=== PATIENT | female | born 1970 | race Caucasian/White ===

== ENCOUNTER 2022-02-02 10:14 | Observation (INO) ==
[2022-02-02 10:34] VITALS: BMI 29.9
[2022-02-02] MEDS ORDERED: NS 1,000 ML IV 1,000 ML IV ONE (11:01)
[2022-02-02] MEDS ORDERED: TORADOL 30 MG VIAL IVP ONE (11:01)
--- NOTE | 2022-02-02 11:01 | DR.URIAD ---
HPI Time Seen Time Seen by Provider: 02/02/22 10:52 PCP Primary Care Physician: LYNN NUNES Complaint Chief Complaint:: PT HAS BEEN VOMITTNG X1 YEAR AND DOESN'T KNOW WHY. SHE SAW PCP RECENTLY AND WAS TREATED WITH CIPRO, SYMPTOMS RELIEVED AND HAVE STARTED BACK LAST NIGHT. PT STILL HAS GALLBLADDER COVID-19 Coronavirus risk:travel/contact w/high risk person: No Has patient experienced Coronavirus symptoms: Yes Coronavirus symptoms experienced: Fever and Shortness of Breath Reviewed Nurses Notes Reviewed: Yes Source History Provided: Patient and Family Member Mode of Arrival Mode of Arrival: Wheelchair Timing Onset of Chief Complaint: 02/01/22 Context Recent Treated Infections: None History of Respiratory: None PMH PMH Past Medical History: Yes Past Medical History: Diabetes, Hypertension and Seizures Past Medical History Comment: CONSTIPATION (LINZESS) Past Surgical History: Yes Surgical History: Hysterectomy Past Surgical History Comment: GOITER/THYROIDECTOMY, ABDOMINAL SURGERY Family History History of Family Medical Conditions: Yes Family Medical History: Diabetes Mellitus, Cancer, [place], Coronary Artery Disease and Hypertension Family Medical History Comment: ANEURYSM Social History Does any household member use tobacco: No Alcohol Use: None Do you use any recreational Drugs:: No Lives With: Family Lives Where: Home Travel Risk Coronavirus risk:travel/contact w/high risk person: No Has patient experienced Coronavirus symptoms: Yes Coronavirus symptoms experienced: Fever and Shortness of Breath Infectious screening In the last 2 months have you had wt loss of >10#?: NO Have you had fever, night sweats or hemotysis?: No Have you traveled outside the country in the last 6 months?: No Isolation: Standard ROS Review of Systems Constitutional: See HPI, Chills, Diaphoresis, Fever, Weakness and Fatigue Eyes: No Symptoms Reported and See HPI ENTM: See HPI and Nose Congestion; negative Nose Discharge Respiratoy: See HPI, Moist Cough and Short of Breath Cardiovascular: See HPI and Palpitations Gastrointestinal/Abdominal: See HPI, Abdominal Pain, Nausea and Vomiting; negative Diarrhea Genitourinary: See HPI and Frequency; negative Dysuria Neurological: See HPI and Weakness; negative Headache or Dizziness Musculoskeletal: See HPI and Back Pain (RIGHT FLANK PAIN.) Integumentary: See HPI and Dryness; negative Rash or Juandice Hematologic/Lymphatic: No Symptoms Reported and See HPI; negative Easy Bleeding, Easy Bruising or Swollen Glands Endocrine: No Symptoms Reported and See HPI; negative Increased Thirst or Increased Urine Psychiatric: No Symptoms Reported and See HPI All Other Systems: Reviewed and Negative PE Vital Signs Vitals: Temperature 99.8 F Pulse Rate 141 Respiratory Rate 20 Blood Pressure 120/80 O2 Sat by Pulse Oximetry 96 General Limitations: No Limitations Head Head Exam: Normal Inspection Eyes Eye exam: Normal Appearance and PERRL ENT ENT Exam: Normal Exam, Normal Oropharynx, Normal External Ear Exam and TM's Normal Bilaterally External Ear Exam: Normal External Inspection; negative Mastoid Tenderness TM/Canal Exam: Bilateral: Normal Nose Exam: Normal Nose Exam and Sinus Tenderness Mouth Exam: Normal Inspection; negative Lip Swelling or Tongue Swelling Throat Exam: negative Tonsillar Erythema, Tonsillomegaly or Tonsillar Exudate Neck Neck Exam: Normal Inspection and Trachea Midline; negative Tenderness Chest Chest Inspection: Normal Inspection and Symmetric Chest Wall Rise; negative Tenderness Respiratory Respiratory Exam: Normal Lung Sounds Bilat; negative Accessory Muscle Use, Chest Wall Tenderness or Respiratory Distress Respiratory Exam: Lower: Clear to Auscultation Cardiovascular Cardiovascular Exam: Tachycardia and Normal Heart Sounds; negative Systolic Murmur or Diastolic Murmur Abdominal Exam Abdominal Exam: Normal Inspection, Normal Bowel Sounds and Soft; negative Tenderness Extremeties Extremities Exam: Normal Inspection and Normal Capillary Refill Back Back Exam: (R) CVA Tenderness; negative (L) CVA Tenderness Neurologic Neurological Exam: Alert and Oriented X3; negative Motor Sensory Deficit Psychiatric Psychiatric Exam: Normal Affect and Normal Mood Skin Skin Exam: Dry ROR Labs Reviewed Result Diagrams: 02/02/22 11:16 02/02/22 11:16 Laboratory: WBC 12.8 X10^3/uL (3.6-10.0) H 02/02/22 11:16 RBC 4.85 X10^6/uL (3.5-5.4) 02/02/22 11:16 Hgb 13.4 g/dL (12.0-16.0) 02/02/22 11:16 Hct 40.5 % (36.0-47.0) 02/02/22 11:16 MCV 83.6 fL (80.0-100.0) 02/02/22 11:16 MCH 27.7 pg (27.0-34.0) 02/02/22 11:16 MCHC 33.1 g/dL (33.0-35.0) 02/02/22 11:16 RDW 14.7 % (11.6-16.5) 02/02/22 11:16 Plt Count 171 X10^3/uL (150.0-450.0) 02/02/22 11:16 Plt Count Comment Adequate (ADEQUATE) 02/02/22 11:16 MPV 10.4 fL (7.4-11.0) 02/02/22 11:16 Neut % (Auto) 93.0 % (42.0-75.0) H 02/02/22 11:16 Lymph % (Auto) 3.8 % (21.0-51.0) L 02/02/22 11:16 [place] % (Auto) 1.6 % (0.0-13.0) 02/02/22 11:16 Eos % (Auto) 0.5 % (0.9-2.9) L 02/02/22 11:16 Baso % (Auto) 1.1 % (0.2-1.0) H 02/02/22 11:16 Neut # (Auto) 12.0 x10^3/uL (2.2-4.8) H 02/02/22 11:16 Lymph # (Auto) 0.5 X10^3/uL (1.3-2.9) L 02/02/22 11:16 [place] # (Auto) 0.2 x10^3/uL (0.3-0.8) L 02/02/22 11:16 Eos # (Auto) 0.1 x10^3/uL (0.0-0.2) 02/02/22 11:16 Baso # (Auto) 0.1 X10^3/uL (0.0-0.1) 02/02/22 11:16 Absolute Nucleated RBC 0.0 /100WBC 02/02/22 11:16 Total Counted 100 02/02/22 11:16 Neutrophils % (Manual) 81 % (39-76) H 02/02/22 11:16 Band Neutrophils % 12 % (0-10) H 02/02/22 11:16 Lymphocytes % (Manual) 3 % (13-43) L 02/02/22 11:16 Monocytes % (Manual) 1 % (4-9) L 02/02/22 11:16 Metamyelocytes % 3 02/02/22 11:16 Plt Morphology Comment Normal (NORMAL) 02/02/22 11:16 RBC Morphology Normal (NORMAL) 02/02/22 11:16 Sodium 138 mmol/L (136-145) 02/02/22 11:16 Corrected Sodium 141 mmol/L (136-145) 02/02/22 11:16 Potassium 4.2 mmol/L (3.5-5.1) 02/02/22 11:16 Chloride 101 mmol/L (98-107) 02/02/22 11:16 Carbon Dioxide 27.9 mmol/L (21-32) 02/02/22 11:16 BUN 16 mg/dL (7-18) 02/02/22 11:16 Creatinine 0.93 mg/dL (0.55-1.02) 02/02/22 11:16 Est GFR (MDRD) Af Amer > 60 (>60) 02/02/22 11:16 Est GFR (MDRD) Non-Af > 60 (>60) 02/02/22 11:16 Glucose 209 mg/dL (65-99) H 02/02/22 11:16 Calcium 8.7 mg/dL (8.5-10.1) 02/02/22 11:16 Corrected Calcium 9.3 mg/dL (8.5-10.1) 02/02/22 11:16 Total Bilirubin 0.80 mg/dL (0.2-1.0) 02/02/22 11:16 AST 25 Units/L (15-37) 02/02/22 11:16 ALT 20 Units/L (12-78) 02/02/22 11:16 Alkaline Phosphatase 108 Units/L (46-116) 02/02/22 11:16 Total Protein 7.9 g/dL (6.4-8.2) 02/02/22 11:16 Albumin 3.3 g/dL (3.4-5.0) L 02/02/22 11:16 Globulin 4.6 g/dL (2.5-4.5) H 02/02/22 11:16 Albumin/Globulin Ratio 0.7 Ratio (1.1-2.1) L 02/02/22 11:16 Amylase 35 Units/L (25-115) 02/02/22 11:16 Lipase 28 Units/L (73-393) L 02/02/22 11:16 Specimen Type Clean catch urine 02/02/22 12:10 Urine Color Yellow (YELLOW) 02/02/22 12:10 Urine Appearance Clear (CLEAR) 02/02/22 12:10 Urine pH 7.0 (5.0 - 8.0) 02/02/22 12:10 Ur Specific [place] 1.015 (1.000-1.030) 02/02/22 12:10 Urine Protein Negative (NEGATIVE) 02/02/22 12:10 Urine Glucose (UA) 4+ (NEGATIVE) 02/02/22 12:10 Urine Ketones Negative (NEGATIVE) 02/02/22 12:10 Urine Blood Negative (NEGATIVE) 02/02/22 12:10 Urine Nitrite Negative (NEGATIVE) 02/02/22 12:10 Urine Bilirubin Negative (NEGATIVE) 02/02/22 12:10 Urine Urobilinogen Normal (NORMAL) 02/02/22 12:10 Ur Leukocyte Esterase 2+ (NEGATIVE) 02/02/22 12:10 Urine RBC None seen /HPF (0-3) 02/02/22 12:10 Urine WBC 0-2 /HPF (0-5) 02/02/22 12:10 Ur Squamous Epith Cells Few /HPF (NEGATIVE) 02/02/22 12:10 Urine Bacteria Negative /HPF (NEGATIVE) 02/02/22 12:10 Ur Culture Indicated? No/not indicated 02/02/22 12:10 SARS-CoV-2 (PCR) Negative (NEGATIVE) 02/02/22 10:49 Influenza Type A (PCR) Negative (NEGATIVE) 02/02/22 10:49 Influenza Type B (PCR) Negative (NEGATIVE) 02/02/22 10:49 RSV (PCR) Negative (NEGATIVE) 02/02/22 10:49 Opioid Opioid Risk Tool Age (Tenzin box if 16-45): No History of Preadolescent Sexual Abuse: No Total: 0 Total Score Risk Category: Low Risk Copyright: Micheal WOODS predicting aberrant behaviors Discharge Plan Discharge Plan Patient Disposition: 01 HOME, SELF-CARE Condition: Stable Health Concerns: Post Hospitalization: new medications and changes needed to prevent readmission or further decline. Pt educated and given instructions on all concerns. Plan of Treatment: Continue with present treatment and follow up plan. Pt is to keep follow up appointment as instructed and take medications as ordered. Orders to Discharge Patient Discharge Orders: Transfer (Routine); Ordered 02/02/22 Ordered By: EV TOVAR Follow ups/Referrals Follow ups/Referrals: LYNN NUNES [Primary Care Provider] - 3 days Instructions Stand Alone Forms: Precautions for COVID19, [facility], Patient Portal, Social Distancing
[2022-02-02] MEDS ORDERED: TORADOL 30 MG VIAL ONE (11:12)
[2022-02-02] MEDS ORDERED: NS 1,000 ML IV 1,000 ML ONE ×2 (11:12→15:27)
[2022-02-02] MEDS ORDERED: ZOFRAN INJ 4 MG VIAL IVP ONE (11:31)
[2022-02-02 11:32] LABS: BASOPHILS # (AUTO) 0.1 X10^3/uL (0.0-0.1); BASOPHILS % (AUTO) 1.1 % (0.2-1.0); EOSINOPHILS # (AUTO) 0.1 x10^3/uL (0.0-0.2); EOSINOPHILS % (AUTO) 0.5 % (0.9-2.9); HEMATOCRIT 40.5 % (36.0-47.0); HEMOGLOBIN 13.4 g/dL (12.0-16.0); LYMPHOCYTES # (AUTO) 0.5 X10^3/uL (1.3-2.9); LYMPHOCYTES % (AUTO) 3.8 % (21.0-51.0); MEAN CORPUSCULAR HEMOGLOBIN 27.7 pg (27.0-34.0); MEAN CORPUSCULAR HGB CONC 33.1 g/dL (33.0-35.0); MEAN CORPUSCULAR VOLUME 83.6 fL (80.0-100.0); MEAN PLATELET VOLUME 10.4 fL (7.4-11.0); MONOCYTES # (AUTO) 0.2 x10^3/uL (0.3-0.8); MONOCYTES % (AUTO) 1.6 % (0.0-13.0); RED BLOOD COUNT 4.85 X10^6/uL (3.5-5.4); RED CELL DISTRIBUTION WIDTH 14.7 % (11.6-16.5); WHITE BLOOD COUNT 12.8 X10^3/uL (3.6-10.0)
[2022-02-02] MEDS ORDERED: ZOFRAN INJ 4 MG VIAL ONE (11:32)
[2022-02-02 11:45] LABS: ALANINE AMINOTRANSFERASE 20 Units/L (12-78); ALBUMIN 3.3 g/dL (3.4-5.0); ALKALINE PHOSPHATASE 108 Units/L (46-116); AMYLASE 35 Units/L (25-115); ASPARTATE AMINO TRANSFERASE 25 Units/L (15-37); BLOOD UREA NITROGEN 16 mg/dL (7-18); CALCIUM 8.7 mg/dL (8.5-10.1); CARBON DIOXIDE 27.9 mmol/L (21-32); CHLORIDE 101 mmol/L (98-107); COR CA(FOR HYPOALB) 9.3 mg/dL (8.5-10.1); COR NA(FOR HYPERGLY) 141 mmol/L (136-145); CREATININE 0.93 mg/dL (0.55-1.02); LIPASE 28 Units/L (73-393); SODIUM 138 mmol/L (136-145); TOTAL PROTEIN 7.9 g/dL (6.4-8.2); eGFR NON BLACK RACES > 60 (>60)
[2022-02-02 11:55] LABS: BAND NEUTROPHILS % 12 % (0-10); METAMYELOCYTES % 3; PLATELET MORPHOLOGY COMMENT NORMAL (NORMAL)
[2022-02-02 12:21] LABS: BILIRUBIN,URINE NEGATIVE (NEGATIVE); BLOOD/HEMOGLOBIN,URINE NEGATIVE (NEGATIVE); GLUCOSE, URINE 4+ (NEGATIVE); KETONES,URINE NEGATIVE (NEGATIVE); LEUKOCYTE ESTERASE ,URINE 2+ (NEGATIVE); NITRITES,URINE NEGATIVE (NEGATIVE); PROTEIN,URINE NEGATIVE (NEGATIVE); UROBILINOGEN,URINE NORMAL (NORMAL)
[2022-02-02 12:24] LABS: APPEARANCE,URINE CLEAR (CLEAR); COLOR,URINE YELLOW (YELLOW)
[2022-02-02 12:25] LABS: BACTERIA,URINE NEGATIVE /HPF (NEGATIVE); RBC,URINE NONE SEEN /HPF (0-3); SQUAMOUS EPITHELIAL CELL,UR FEW /HPF (NEGATIVE)
--- NOTE | 2022-02-02 13:53 | CT ---
ABDOMEN/PELVIS W/O CONHistory: FEVER, CHILLS, ABD PAINTechnique: CT images of the abdomen and pelvis were obtained without IV or oral contrast. Reformatted images in the coronal and sagittal planes also generated for review. Automatic exposure was utilized.Comparison: None availableFindings: Imaged lung bases are clear of acute infiltrates. There is no acute osseous abnormality.Please note that evaluation for soft tissue pathology is limited without IV contrast. Evaluation of the GI tract is also limited without oral contrast.Accounting for this, the unenhanced liver, spleen, pancreas and adrenals are unremarkable. Gallbladder is mildly distended but thin walled without significant gallbladder wall thickening or pericholecystic inflammatory stranding. Small nonobstructing stones within the lower pole of the left kidney are noted. No additional radiopaque urinary tract stones are identified and there is no left or right obstructive uropathy.There is no bowel obstruction or gross inflammation. The appendix is not definitively identified, although no secondary findings of acute appendicitis are seen. The abdominal aorta is normal in caliber. The urinary bladder is grossly unremarkable. The uterus is absent. There is no free air, free fluid or bulky lymphadenopathy.Impression:1. Mild gallbladder distention without significant gallbladder wall thickening or pericholecystic inflammatory change to suggest acute cholecystitis. If patient presents with symptoms concerning for acute cholecystitis, consider gallbladder ultrasound for further evaluation.2. Otherwise, no convincing acute inflammatory process identified within the abdomen or pelvis, within the limitations of an exam performed without intravenous or oral contrast.3. Nonobstructing left nephrolithiasisElectronically signed by: JOHN VEGAS (Feb 02, 2022 13:51:14)
[2022-02-02] MEDS ORDERED: ZOSYN VIAL 3.375 GRAMS 3.375 G in NS 100 ML IV 100 ML IV ONE (15:07)
[2022-02-02] MEDS ORDERED: ZOSYN VIAL 3.375 GRAMS IV ONE (15:27)
[2022-02-02] MEDS ORDERED: NS 100 ML IV 100 ML ONE (15:27)
[2022-02-02] MEDS: NS 1,000 ML IV 1,000 ML IV SCH (15:49)
[2022-02-02] MEDS ORDERED: NS + KCL 20 MEQ/L 1,000 ML IV SCH (16:00)
[2022-02-02] MEDS: DILAUDID INJ IVP PRN (17:20)
--- NOTE | 2022-02-02 17:27 | DR.H&P ---
H&P History & Physical for Day of: H&P Date: 02/02/22 Chief Complaint Chief Complaint: RUQ pain Allergies Allergies Allergy/AdvReac Type Severity Reaction Status Date / Time No Known Drug Allergies Allergy Verified 02/02/22 15:23 History of Present Illness History of Present Illness: This is a pleasant 51-year-old white female who presented to the [facility] emergency department with worsening chronic right upper pain. The pain started approximately a year ago she has not had any test to see if it was her gallbladder causing her these symptoms. She did see her primary care physician recently was diagnosed with a UTI when she treated with antibiotics. Patient has a history of seizures, diabetes mellitus and hypertension. Past Medical History Past Medical History: Diabetes, Hypertension and Seizures Past Surgical History Surgical History: Hysterectomy and Thyroidectomy Family History Family Medical History: Diabetes Mellitus, Cancer, [place], Coronary Artery Disease and Hypertension Social History Does any household member use tobacco: No Alcohol Use: None Medications Home Medications: No Known Drug Allergies Allergy (Verified 02/02/22 15:23) Labs Result Diagrams: 02/03/22 05:26 02/03/22 05:26 Labs: Laboratory WBC 12.8 X10^3/uL (3.6-10.0) H 02/02/22 11:16 RBC 4.85 X10^6/uL (3.5-5.4) 02/02/22 11:16 Hgb 13.4 g/dL (12.0-16.0) 02/02/22 11:16 Hct 40.5 % (36.0-47.0) 02/02/22 11:16 MCV 83.6 fL (80.0-100.0) 02/02/22 11:16 MCH 27.7 pg (27.0-34.0) 02/02/22 11:16 MCHC 33.1 g/dL (33.0-35.0) 02/02/22 11:16 RDW 14.7 % (11.6-16.5) 02/02/22 11:16 Plt Count 171 X10^3/uL (150.0-450.0) 02/02/22 11:16 Plt Count Comment Adequate (ADEQUATE) 02/02/22 11:16 MPV 10.4 fL (7.4-11.0) 02/02/22 11:16 Neut % (Auto) 93.0 % (42.0-75.0) H 02/02/22 11:16 Lymph % (Auto) 3.8 % (21.0-51.0) L 02/02/22 11:16 [place] % (Auto) 1.6 % (0.0-13.0) 02/02/22 11:16 Eos % (Auto) 0.5 % (0.9-2.9) L 02/02/22 11:16 Baso % (Auto) 1.1 % (0.2-1.0) H 02/02/22 11:16 Neut # (Auto) 12.0 x10^3/uL (2.2-4.8) H 02/02/22 11:16 Lymph # (Auto) 0.5 X10^3/uL (1.3-2.9) L 02/02/22 11:16 [place] # (Auto) 0.2 x10^3/uL (0.3-0.8) L 02/02/22 11:16 Eos # (Auto) 0.1 x10^3/uL (0.0-0.2) 02/02/22 11:16 Baso # (Auto) 0.1 X10^3/uL (0.0-0.1) 02/02/22 11:16 Absolute Nucleated RBC 0.0 /100WBC 02/02/22 11:16 Total Counted 100 02/02/22 11:16 Neutrophils % (Manual) 81 % (39-76) H 02/02/22 11:16 Band Neutrophils % 12 % (0-10) H 02/02/22 11:16 Lymphocytes % (Manual) 3 % (13-43) L 02/02/22 11:16 Monocytes % (Manual) 1 % (4-9) L 02/02/22 11:16 Metamyelocytes % 3 02/02/22 11:16 Plt Morphology Comment Normal (NORMAL) 02/02/22 11:16 RBC Morphology Normal (NORMAL) 02/02/22 11:16 Sodium 138 mmol/L (136-145) 02/02/22 11:16 Corrected Sodium 141 mmol/L (136-145) 02/02/22 11:16 Potassium 4.2 mmol/L (3.5-5.1) 02/02/22 11:16 Chloride 101 mmol/L (98-107) 02/02/22 11:16 Carbon Dioxide 27.9 mmol/L (21-32) 02/02/22 11:16 BUN 16 mg/dL (7-18) 02/02/22 11:16 Creatinine 0.93 mg/dL (0.55-1.02) 02/02/22 11:16 Est GFR (MDRD) Af Amer > 60 (>60) 02/02/22 11:16 Est GFR (MDRD) Non-Af > 60 (>60) 02/02/22 11:16 Glucose 209 mg/dL (65-99) H 02/02/22 11:16 Calcium 8.7 mg/dL (8.5-10.1) 02/02/22 11:16 Corrected Calcium 9.3 mg/dL (8.5-10.1) 02/02/22 11:16 Total Bilirubin 0.80 mg/dL (0.2-1.0) 02/02/22 11:16 AST 25 Units/L (15-37) 02/02/22 11:16 ALT 20 Units/L (12-78) 02/02/22 11:16 Alkaline Phosphatase 108 Units/L (46-116) 02/02/22 11:16 Total Protein 7.9 g/dL (6.4-8.2) 02/02/22 11:16 Albumin 3.3 g/dL (3.4-5.0) L 02/02/22 11:16 Globulin 4.6 g/dL (2.5-4.5) H 02/02/22 11:16 Albumin/Globulin Ratio 0.7 Ratio (1.1-2.1) L 02/02/22 11:16 Amylase 35 Units/L (25-115) 02/02/22 11:16 Lipase 28 Units/L (73-393) L 02/02/22 11:16 Specimen Type Clean catch urine 02/02/22 12:10 Urine Color Yellow (YELLOW) 02/02/22 12:10 Urine Appearance Clear (CLEAR) 02/02/22 12:10 Urine pH 7.0 (5.0 - 8.0) 02/02/22 12:10 Ur Specific [place] 1.015 (1.000-1.030) 02/02/22 12:10 Urine Protein Negative (NEGATIVE) 02/02/22 12:10 Urine Glucose (UA) 4+ (NEGATIVE) 02/02/22 12:10 Urine Ketones Negative (NEGATIVE) 02/02/22 12:10 Urine Blood Negative (NEGATIVE) 02/02/22 12:10 Urine Nitrite Negative (NEGATIVE) 02/02/22 12:10 Urine Bilirubin Negative (NEGATIVE) 02/02/22 12:10 Urine Urobilinogen Normal (NORMAL) 02/02/22 12:10 Ur Leukocyte Esterase 2+ (NEGATIVE) 02/02/22 12:10 Urine RBC None seen /HPF (0-3) 02/02/22 12:10 Urine WBC 0-2 /HPF (0-5) 02/02/22 12:10 Ur Squamous Epith Cells Few /HPF (NEGATIVE) 02/02/22 12:10 Urine Bacteria Negative /HPF (NEGATIVE) 02/02/22 12:10 Ur Culture Indicated? No/not indicated 02/02/22 12:10 SARS-CoV-2 (PCR) Negative (NEGATIVE) 02/02/22 10:49 Influenza Type A (PCR) Negative (NEGATIVE) 02/02/22 10:49 Influenza Type B (PCR) Negative (NEGATIVE) 02/02/22 10:49 RSV (PCR) Negative (NEGATIVE) 02/02/22 10:49 Review of Systems Constitutional: Weakness Eyes: No Symptoms Reported ENT: No Symptoms Reported Respiratory: No Symptoms Reported Cardiovascular: No Symptoms Reported Gastrointestinal: Abdominal Pain Genitourinary: No Symptoms Reported Musculoskeletal: No Symptoms Reported Skin: No Symptoms Reported Neurological: No Symptoms Reported Physical Exam Vital Signs: Temperature 99.8 F Pulse Rate 141 Respiratory Rate 22 Blood Pressure 120/80 O2 Sat by Pulse Oximetry 96 Oriented: Normal Eyes: Normal Ear: Normal Nose: Normal Throat: Normal Respiratory: Clear Throughout Cardiovascular: Normal : Normal Auscultation: Bowel Sounds: Normal Palpation: Normal Tenderness: RUQ Skin: Normal Musculoskeletal: Normal Psychiatric: Normal Mood Description: Calm Affect: Normal Speech Pattern: Clear Assessment/Plan (1) RUQ pain: Status: Acute Plan: General surgery evaluation for cholecystectomy. Follow-up with gallbladder ultrasound. (2) Hx of seizure disorder: Status: Acute (3) Leukocytosis: Status: Acute Plan: Continue IV Zosyn.
[2022-02-02] MEDS ORDERED: ZOFRAN INJ 4 MG VIAL IVP PRN (17:55)
[2022-02-02] MEDS: ZOSYN VIAL 3.375 GRAMS 3.375 G in NS 100 ML IV 100 ML IV SCH (18:04)
[2022-02-03] MEDS: NS 1,000 ML IV 1,000 ML IV SCH ×3 (00:23→18:57)
[2022-02-03] MEDS: ZOSYN VIAL 3.375 GRAMS 3.375 G in NS 100 ML IV 100 ML IV SCH ×3 (05:39→21:00)
--- NOTE | 2022-02-03 06:01 | RAD ---
HISTORYpre op. acute cholecystitis Relevant Clinical InformationSTUDYCHEST, 1 VIEWCOMPARISONNoneFINDINGSThe trachea is midline. The cardiac silhouette is unremarkable. Left upper lobe infiltrate.. The bony thorax is unremarkable.IMPRESSIONLeft upper lobe pneumonia..Electronically signed by: Willam Benoit (Feb 03, 2022 05:59:34)
[2022-02-03 06:38] LABS: BASOPHILS # (AUTO) 0.1 X10^3/uL (0.0-0.1); BASOPHILS % (AUTO) 0.3 % (0.2-1.0); EOSINOPHILS % (AUTO) 0.1 % (0.9-2.9); HEMATOCRIT 33.5 % (36.0-47.0); LYMPHOCYTES # (AUTO) 2.3 X10^3/uL (1.3-2.9); LYMPHOCYTES % (AUTO) 8.5 % (21.0-51.0); MEAN CORPUSCULAR HEMOGLOBIN 27.6 pg (27.0-34.0); MEAN CORPUSCULAR HGB CONC 32.8 g/dL (33.0-35.0); MEAN CORPUSCULAR VOLUME 84.1 fL (80.0-100.0); MEAN PLATELET VOLUME 10.7 fL (7.4-11.0); MONOCYTES # (AUTO) 1.9 x10^3/uL (0.3-0.8); NEUTROPHILS # (AUTO) 22.4 x10^3/uL (2.2-4.8); NEUTROPHILS % (AUTO) 84.1 % (42.0-75.0); RED BLOOD COUNT 3.99 X10^6/uL (3.5-5.4); RED CELL DISTRIBUTION WIDTH 14.8 % (11.6-16.5); WHITE BLOOD COUNT 26.7 X10^3/uL (3.6-10.0)
[2022-02-03 06:42] LABS: ALANINE AMINOTRANSFERASE 13 Units/L (12-78); ALBUMIN 2.5 g/dL (3.4-5.0); ALKALINE PHOSPHATASE 70 Units/L (46-116); AMYLASE 24 Units/L (25-115); ASPARTATE AMINO TRANSFERASE 17 Units/L (15-37); BLOOD UREA NITROGEN 19 mg/dL (7-18); CALCIUM 7.8 mg/dL (8.5-10.1); CARBON DIOXIDE 26.5 mmol/L (21-32); CHLORIDE 106 mmol/L (98-107); CREATININE 0.82 mg/dL (0.55-1.02); LIPASE 20 Units/L (73-393); SODIUM 140 mmol/L (136-145); TOTAL PROTEIN 6.5 g/dL (6.4-8.2); eGFR NON BLACK RACES > 60 (>60)
[2022-02-03 07:16] LABS: BAND NEUTROPHILS % 17 % (0-10); METAMYELOCYTES % 1; PLATELET MORPHOLOGY COMMENT NORMAL (NORMAL)
[2022-02-03] MEDS ORDERED: DUONEB 0.5 MG/3 MG (3 mL) NEB ONE ×2 (08:37→08:40)
[2022-02-03] MEDS ORDERED: XYLOCAINE 2 % (PLAIN) ONE (08:55)
[2022-02-03] MEDS ORDERED: ZEMURON 100 MG VIAL ONE (08:55)
[2022-02-03] MEDS ORDERED: PEPCID 20 MG VIAL ONE (08:55)
[2022-02-03] MEDS ORDERED: VERSED ONE (08:55)
[2022-02-03] MEDS ORDERED: OFIRMEV IV 1000 MG VIAL 1,000 MG/100 ML VIAL IV ONE (08:55)
[2022-02-03] MEDS ORDERED: AMIDATE INJ 40 MG VIAL ONE (08:55)
[2022-02-03] MEDS ORDERED: BRIDION ONE (08:55)
[2022-02-03] MEDS ORDERED: ZOFRAN INJ 4 MG VIAL ONE (08:55)
[2022-02-03] MEDS ORDERED: FENTANYL VIAL INJ 100 mcg ONE (08:56)
[2022-02-03] MEDS ORDERED: KETAMINE HCL ONE (09:07)
[2022-02-03] MEDS ORDERED: EPHEDRINE SULFATE INJ ONE (09:28)
[2022-02-03] MEDS ORDERED: DECADRON INJ ONE (09:39)
[2022-02-03] MEDS ORDERED: BACTROBAN TOPICAL OINT ONE (10:08)
[2022-02-03] MEDS ORDERED: DILAUDID INJ ONE (10:10)
[2022-02-03] MEDS ORDERED: PHENERGAN INJ 25 MG IM PRN (10:31)
[2022-02-03] MEDS ORDERED: DILAUDID INJ IVP PRN (10:31)
[2022-02-03] MEDS ORDERED: BARHEMSYS INJ IVP PRN (10:31)
[2022-02-03] MEDS ORDERED: BENADRYL INJ 50 MG VIAL IVP PRN (10:31)
[2022-02-03] MEDS: DILAUDID INJ IVP PRN ×3 (13:38→23:54)
--- NOTE | 2022-02-03 15:16 | PCM.PROG ---
Progress Note Progress Note for Day of Date of Exam: 02/03/22 Subjective Subjective: Patient had no acute problems overnight. She is still hurting in the right upper quadrant however that her pain is better controlled. The patient's white blood cell count has gone up since admission to 26,700 this morning. Also chest x-ray showed a right upper lobe pneumonia today. Patient is already covered with IV Zosyn we will continue that. Past Medical Family Social History Allergies: Allergies No Known Drug Allergies Allergy (Verified 02/02/22 15:23) Review of Systems ROS: No change since H&P Vital Signs and I&O's Vital Signs: Temperature 98.9 F Pulse Rate [Left Radial] 96 Pulse Rate 92 Respiratory Rate 22 Blood Pressure [Left Arm] 117/63 Blood Pressure 113/58 O2 Sat by Pulse Oximetry 97 Intake and Output: Intake & Output 02/01/22 02/02/22 02/03/22 02/04/22 11:59 11:59 11:59 11:59 Intake Total 3761 / 3761 1400 / 1400 Balance 3761 / 3761 1400 / 1400 Physical Exam Oriented: Normal Eyes: Normal Ear: Normal Nose: Normal Throat: Normal Respiratory: Normal Cardiovascular: Normal : Normal Auscultation: Bowel Sounds: Normal Tenderness: RUQ Skin: Normal Musculoskeletal: Normal Psychiatric: Normal Mood Description: Calm Affect: Normal Speech Pattern: Clear Laboratory and Diagnostics Result Diagrams: 02/03/22 05:26 02/03/22 05:26 Labs: Laboratory WBC 26.7 X10^3/uL (3.6-10.0) H D 02/03/22 05:26 RBC 3.99 X10^6/uL (3.5-5.4) 02/03/22 05:26 Hgb 11.0 g/dL (12.0-16.0) L D 02/03/22 05:26 Hct 33.5 % (36.0-47.0) L 02/03/22 05:26 MCV 84.1 fL (80.0-100.0) 02/03/22 05:26 MCH 27.6 pg (27.0-34.0) 02/03/22 05:26 MCHC 32.8 g/dL (33.0-35.0) L 02/03/22 05:26 RDW 14.8 % (11.6-16.5) 02/03/22 05:26 Plt Count 151 X10^3/uL (150.0-450.0) 02/03/22 05:26 Plt Count Comment Adequate (ADEQUATE) 02/03/22 05:26 MPV 10.7 fL (7.4-11.0) 02/03/22 05:26 Neut % (Auto) 84.1 % (42.0-75.0) H 02/03/22 05:26 Lymph % (Auto) 8.5 % (21.0-51.0) L 02/03/22 05:26 [place] % (Auto) 7.0 % (0.0-13.0) 02/03/22 05:26 Eos % (Auto) 0.1 % (0.9-2.9) L 02/03/22 05:26 Baso % (Auto) 0.3 % (0.2-1.0) 02/03/22 05:26 Neut # (Auto) 22.4 x10^3/uL (2.2-4.8) H 02/03/22 05:26 Lymph # (Auto) 2.3 X10^3/uL (1.3-2.9) 02/03/22 05:26 [place] # (Auto) 1.9 x10^3/uL (0.3-0.8) H 02/03/22 05:26 Eos # (Auto) 0.0 x10^3/uL (0.0-0.2) 02/03/22 05:26 Baso # (Auto) 0.1 X10^3/uL (0.0-0.1) 02/03/22 05:26 Absolute Nucleated RBC 0.0 /100WBC 02/03/22 05:26 Total Counted 100 02/03/22 05:26 Neutrophils % (Manual) 58 % (39-76) 02/03/22 05:26 Band Neutrophils % 17 % (0-10) H 02/03/22 05:26 Lymphocytes % (Manual) 15 % (13-43) 02/03/22 05:26 Monocytes % (Manual) 9 % (4-9) 02/03/22 05:26 Metamyelocytes % 1 02/03/22 05:26 Plt Morphology Comment Normal (NORMAL) 02/03/22 05:26 RBC Morphology Normal (NORMAL) 02/03/22 05:26 Sodium 140 mmol/L (136-145) 02/03/22 05:26 Corrected Sodium TNP 02/03/22 05:26 Potassium 3.7 mmol/L (3.5-5.1) 02/03/22 05:26 Chloride 106 mmol/L (98-107) 02/03/22 05:26 Carbon Dioxide 26.5 mmol/L (21-32) 02/03/22 05:26 BUN 19 mg/dL (7-18) H 02/03/22 05:26 Creatinine 0.82 mg/dL (0.55-1.02) 02/03/22 05:26 Est GFR (MDRD) Af Amer > 60 (>60) 02/03/22 05:26 Est GFR (MDRD) Non-Af > 60 (>60) 02/03/22 05:26 Glucose 108 mg/dL (65-99) H 02/03/22 05:26 POC Glucose (mg/dL) 177 mg/dL (65-99) H 02/03/22 12:05 Calcium 7.8 mg/dL (8.5-10.1) L 02/03/22 05:26 Corrected Calcium 9.0 mg/dL (8.5-10.1) 02/03/22 05:26 Total Bilirubin 0.70 mg/dL (0.2-1.0) 02/03/22 05:26 AST 17 Units/L (15-37) 02/03/22 05:26 ALT 13 Units/L (12-78) 02/03/22 05:26 Alkaline Phosphatase 70 Units/L (46-116) 02/03/22 05:26 Total Protein 6.5 g/dL (6.4-8.2) 02/03/22 05:26 Albumin 2.5 g/dL (3.4-5.0) L 02/03/22 05:26 Globulin 4.0 g/dL (2.5-4.5) 02/03/22 05:26 Albumin/Globulin Ratio 0.6 Ratio (1.1-2.1) L 02/03/22 05:26 Amylase 24 Units/L (25-115) L 02/03/22 05:26 Lipase 20 Units/L (73-393) L 02/03/22 05:26 Specimen Type Clean catch urine 02/02/22 12:10 Urine Color Yellow (YELLOW) 02/02/22 12:10 Urine Appearance Clear (CLEAR) 02/02/22 12:10 Urine pH 7.0 (5.0 - 8.0) 02/02/22 12:10 Ur Specific [place] 1.015 (1.000-1.030) 02/02/22 12:10 Urine Protein Negative (NEGATIVE) 02/02/22 12:10 Urine Glucose (UA) 4+ (NEGATIVE) 02/02/22 12:10 Urine Ketones Negative (NEGATIVE) 02/02/22 12:10 Urine Blood Negative (NEGATIVE) 02/02/22 12:10 Urine Nitrite Negative (NEGATIVE) 02/02/22 12:10 Urine Bilirubin Negative (NEGATIVE) 02/02/22 12:10 Urine Urobilinogen Normal (NORMAL) 02/02/22 12:10 Ur Leukocyte Esterase 2+ (NEGATIVE) 02/02/22 12:10 Urine RBC None seen /HPF (0-3) 02/02/22 12:10 Urine WBC 0-2 /HPF (0-5) 02/02/22 12:10 Ur Squamous Epith Cells Few /HPF (NEGATIVE) 02/02/22 12:10 Urine Bacteria Negative /HPF (NEGATIVE) 02/02/22 12:10 Ur Culture Indicated? No/not indicated 02/02/22 12:10 SARS-CoV-2 (PCR) Negative (NEGATIVE) 02/02/22 10:49 Influenza Type A (PCR) Negative (NEGATIVE) 02/02/22 10:49 Influenza Type B (PCR) Negative (NEGATIVE) 02/02/22 10:49 RSV (PCR) Negative (NEGATIVE) 02/02/22 10:49 Tissue Pathology To follow 02/03/22 10:00 Plan (1) RUQ pain: Status: Acute Plan: General surgery evaluation for cholecystectomy. Follow-up with gallbladder ultrasound. (2) Hx of seizure disorder: Status: Acute (3) Leukocytosis: Status: Acute Plan: Continue IV Zosyn. (4) Right upper lobe pneumonia: Status: Acute Plan: Continue IV Zosyn and patient at this time. Recheck CBC and chest x-ray tomorrow morning. Also check sputum cultures as well.
[2022-02-03] MEDS ORDERED: NovoLIN R (or HumuLIN R) SC PRN (17:09)
[2022-02-04] MEDS: NS 1,000 ML IV 1,000 ML IV SCH ×4 (00:26→15:33)
[2022-02-04] MEDS: ZOSYN VIAL 3.375 GRAMS 3.375 G in NS 100 ML IV 100 ML IV SCH ×2 (05:12→13:50)
[2022-02-04 06:11] LABS: BASOPHILS % (AUTO) 0.3 % (0.2-1.0); HEMATOCRIT 31.6 % (36.0-47.0); HEMOGLOBIN 10.5 g/dL (12.0-16.0); LYMPHOCYTES # (AUTO) 1.2 X10^3/uL (1.3-2.9); LYMPHOCYTES % (AUTO) 6.6 % (21.0-51.0); MEAN CORPUSCULAR HEMOGLOBIN 27.7 pg (27.0-34.0); MEAN CORPUSCULAR HGB CONC 33.3 g/dL (33.0-35.0); MEAN CORPUSCULAR VOLUME 83.1 fL (80.0-100.0); MEAN PLATELET VOLUME 10.5 fL (7.4-11.0); MONOCYTES # (AUTO) 0.7 x10^3/uL (0.3-0.8); MONOCYTES % (AUTO) 3.7 % (0.0-13.0); NEUTROPHILS # (AUTO) 16.3 x10^3/uL (2.2-4.8); NEUTROPHILS % (AUTO) 89.4 % (42.0-75.0); RED CELL DISTRIBUTION WIDTH 14.8 % (11.6-16.5); WHITE BLOOD COUNT 18.2 X10^3/uL (3.6-10.0)
[2022-02-04 06:24] LABS: ALANINE AMINOTRANSFERASE 21 Units/L (12-78); ALBUMIN 2.4 g/dL (3.4-5.0); ALKALINE PHOSPHATASE 66 Units/L (46-116); ASPARTATE AMINO TRANSFERASE 34 Units/L (15-37); BLOOD UREA NITROGEN 15 mg/dL (7-18); CHLORIDE 106 mmol/L (98-107); COR CA(FOR HYPOALB) 9.3 mg/dL (8.5-10.1); COR NA(FOR HYPERGLY) 139 mmol/L (136-145); CREATININE 0.68 mg/dL (0.55-1.02); SODIUM 138 mmol/L (136-145); TOTAL PROTEIN 6.5 g/dL (6.4-8.2); eGFR NON BLACK RACES > 60 (>60)
[2022-02-04] MEDS ORDERED: SALINE 0.9% 3 ML NEB TX ONE (08:48)
--- NOTE | 2022-02-04 08:51 | DR.PROGNOT ---
Hospital Progress Notes - Progress Note for Day of: Progress Note Date: 02/04/22 - Chief Complaint Chief Complaint: post op lap mode for calculus cholecystitis . WBC still high 18.. LFT normal .. afebrile .. - Past Medical Family Social History Past Med/Fam/Surg Hx: No changes since H&P Allergies: Allergies No Known Drug Allergies Allergy (Verified 02/02/22 15:23) - Review Of Systems ROS: No change since H&P - Vital Signs Vital Signs: Temperature 98.4 F Pulse Rate [Left Radial] 80 Pulse Rate 92 Respiratory Rate 18 Blood Pressure [Left Arm] 145/76 Blood Pressure 113/58 O2 Sat by Pulse Oximetry 97 - Physical Exam Oriented: Normal Eyes: Normal Ear: Normal Nose: Normal Throat: Normal Respiratory: Normal Cardiovascular: Normal : Normal GI:Auscultation: Normal GI:Palpation: Normal GI: Tenderness: Diffuse (soft, flat abdomen with mild diffuse tenerness .. BS+) Skin: Normal Musculoskeletal: Normal Psychiatric: Normal Mood Description: Calm Affect: Normal Speech Pattern: Clear, Appropriate - Laboratory and Diagnostics Result Diagrams: 02/04/22 05:22 02/04/22 05:22 Labs: Laboratory WBC 18.2 X10^3/uL (3.6-10.0) H D 02/04/22 05:22 RBC 3.80 X10^6/uL (3.5-5.4) 02/04/22 05:22 Hgb 10.5 g/dL (12.0-16.0) L 02/04/22 05:22 Hct 31.6 % (36.0-47.0) L 02/04/22 05:22 MCV 83.1 fL (80.0-100.0) 02/04/22 05:22 MCH 27.7 pg (27.0-34.0) 02/04/22 05:22 MCHC 33.3 g/dL (33.0-35.0) 02/04/22 05:22 RDW 14.8 % (11.6-16.5) 02/04/22 05:22 Plt Count 133 X10^3/uL (150.0-450.0) L 02/04/22 05:22 Plt Count Comment Adequate (ADEQUATE) 02/03/22 05:26 MPV 10.5 fL (7.4-11.0) 02/04/22 05:22 Neut % (Auto) 89.4 % (42.0-75.0) H 02/04/22 05:22 Lymph % (Auto) 6.6 % (21.0-51.0) L 02/04/22 05:22 [place] % (Auto) 3.7 % (0.0-13.0) 02/04/22 05:22 Eos % (Auto) 0.0 % (0.9-2.9) L 02/04/22 05:22 Baso % (Auto) 0.3 % (0.2-1.0) 02/04/22 05:22 Neut # (Auto) 16.3 x10^3/uL (2.2-4.8) H 02/04/22 05:22 Lymph # (Auto) 1.2 X10^3/uL (1.3-2.9) L 02/04/22 05:22 Scott # (Auto) 0.7 x10^3/uL (0.3-0.8) 02/04/22 05:22 Eos # (Auto) 0.0 x10^3/uL (0.0-0.2) 02/04/22 05:22 Baso # (Auto) 0.0 X10^3/uL (0.0-0.1) 02/04/22 05:22 Absolute Nucleated RBC 0.0 /100WBC 02/04/22 05:22 Total Counted 100 02/03/22 05:26 Neutrophils % (Manual) 58 % (39-76) 02/03/22 05:26 Band Neutrophils % 17 % (0-10) H 02/03/22 05:26 Lymphocytes % (Manual) 15 % (13-43) 02/03/22 05:26 Monocytes % (Manual) 9 % (4-9) 02/03/22 05:26 Metamyelocytes % 1 02/03/22 05:26 Plt Morphology Comment Normal (NORMAL) 02/03/22 05:26 RBC Morphology Normal (NORMAL) 02/03/22 05:26 Sodium 138 mmol/L (136-145) 02/04/22 05:22 Corrected Sodium 139 mmol/L (136-145) 02/04/22 05:22 Potassium 4.2 mmol/L (3.5-5.1) 02/04/22 05:22 Chloride 106 mmol/L (98-107) 02/04/22 05:22 Carbon Dioxide 25.0 mmol/L (21-32) 02/04/22 05:22 BUN 15 mg/dL (7-18) 02/04/22 05:22 Creatinine 0.68 mg/dL (0.55-1.02) 02/04/22 05:22 Est GFR (MDRD) Af Amer > 60 (>60) 02/04/22 05:22 Est GFR (MDRD) Non-Af > 60 (>60) 02/04/22 05:22 Glucose 134 mg/dL (65-99) H 02/04/22 05:22 POC Glucose (mg/dL) 135 mg/dL (65-99) H 02/04/22 05:39 Calcium 8.0 mg/dL (8.5-10.1) L 02/04/22 05:22 Corrected Calcium 9.3 mg/dL (8.5-10.1) 02/04/22 05:22 Total Bilirubin 0.40 mg/dL (0.2-1.0) 02/04/22 05:22 AST 34 Units/L (15-37) 02/04/22 05:22 ALT 21 Units/L (12-78) 02/04/22 05:22 Alkaline Phosphatase 66 Units/L (46-116) 02/04/22 05:22 Total Protein 6.5 g/dL (6.4-8.2) 02/04/22 05:22 Albumin 2.4 g/dL (3.4-5.0) L 02/04/22 05:22 Globulin 4.1 g/dL (2.5-4.5) 02/04/22 05:22 Albumin/Globulin Ratio 0.6 Ratio (1.1-2.1) L 02/04/22 05:22 Amylase 24 Units/L (25-115) L 02/03/22 05:26 Lipase 20 Units/L (73-393) L 02/03/22 05:26 Specimen Type Clean catch urine 02/02/22 12:10 Urine Color Yellow (YELLOW) 02/02/22 12:10 Urine Appearance Clear (CLEAR) 02/02/22 12:10 Urine pH 7.0 (5.0 - 8.0) 02/02/22 12:10 Ur Specific [place] 1.015 (1.000-1.030) 02/02/22 12:10 Urine Protein Negative (NEGATIVE) 02/02/22 12:10 Urine Glucose (UA) 4+ (NEGATIVE) 02/02/22 12:10 Urine Ketones Negative (NEGATIVE) 02/02/22 12:10 Urine Blood Negative (NEGATIVE) 02/02/22 12:10 Urine Nitrite Negative (NEGATIVE) 02/02/22 12:10 Urine Bilirubin Negative (NEGATIVE) 02/02/22 12:10 Urine Urobilinogen Normal (NORMAL) 02/02/22 12:10 Ur Leukocyte Esterase 2+ (NEGATIVE) 02/02/22 12:10 Urine RBC None seen /HPF (0-3) 02/02/22 12:10 Urine WBC 0-2 /HPF (0-5) 02/02/22 12:10 Ur Squamous Epith Cells Few /HPF (NEGATIVE) 02/02/22 12:10 Urine Bacteria Negative /HPF (NEGATIVE) 02/02/22 12:10 Ur Culture Indicated? No/not indicated 02/02/22 12:10 SARS-CoV-2 (PCR) Negative (NEGATIVE) 02/02/22 10:49 Influenza Type A (PCR) Negative (NEGATIVE) 02/02/22 10:49 Influenza Type B (PCR) Negative (NEGATIVE) 02/02/22 10:49 RSV (PCR) Negative (NEGATIVE) 02/02/22 10:49 Tissue Pathology To follow 02/03/22 10:00 - Assessment and Plan 4: calculus cholecystitis .. s/p Lap hole . to advance diet . same IV ABT . f/u in 10 days ..
[2022-02-04] MEDS ORDERED: PULMICORT NEB TX 0.5 MG NEB SCH (09:00)
[2022-02-04] MEDS ORDERED: SALINE 3% 15 ML NEB TX NEB ONE (09:26)
--- NOTE | 2022-02-04 10:08 | PCM.PROG ---
Progress Note Progress Note for Day of Date of Exam: 02/04/22 Subjective Subjective: The patient is awake this morning. She reports she is feeling better and ready to go home. Her white blood cell count has decreased from 26,000 down to 18,200 this morning. Her vital signs are stable today and she has had no fever since yesterday morning. I will follow-up with Dr. nAita coles later today when available. I will go ahead and check a chest x-ray this morning to see if there is any change in the right upper lobe infiltrate they were seen on previous chest x-ray. Since patient is overall improved I think she could be treated as an outpatient even though she has pneumonia. Past Medical Family Social History Past Med/Fam/Surg Hx: No changes since H&P Allergies: Allergies No Known Drug Allergies Allergy (Verified 02/02/22 15:23) Review of Systems ROS: No change since H&P Vital Signs and I&O's Vital Signs: Temperature 98.4 F Pulse Rate [Left Radial] 80 Pulse Rate 91 Respiratory Rate 18 Blood Pressure [Left Arm] 145/76 Blood Pressure 113/58 O2 Sat by Pulse Oximetry 97 Intake and Output: Intake & Output 02/01/22 02/02/22 02/03/22 02/04/22 11:59 11:59 11:59 11:59 Intake Total 8161 / 3761 3788 / 3788 Balance 3761 / 3761 3788 / 3788 Physical Exam Oriented: Normal Eyes: Normal Ear: Normal Nose: Normal Throat: Normal Respiratory: Normal Cardiovascular: Normal : Normal Auscultation: Bowel Sounds: Decreased Tenderness: Diffuse (soft, flat abdomen with mild diffuse tenerness .. BS+) Skin: Normal Musculoskeletal: Normal Psychiatric: Normal Mood Description: Calm Affect: Normal Speech Pattern: Clear and Appropriate Laboratory and Diagnostics Result Diagrams: 02/04/22 05:22 02/04/22 05:22 Labs: Laboratory WBC 18.2 X10^3/uL (3.6-10.0) H D 02/04/22 05:22 RBC 3.80 X10^6/uL (3.5-5.4) 02/04/22 05:22 Hgb 10.5 g/dL (12.0-16.0) L 02/04/22 05:22 Hct 31.6 % (36.0-47.0) L 02/04/22 05:22 MCV 83.1 fL (80.0-100.0) 02/04/22 05:22 MCH 27.7 pg (27.0-34.0) 02/04/22 05:22 MCHC 33.3 g/dL (33.0-35.0) 02/04/22 05:22 RDW 14.8 % (11.6-16.5) 02/04/22 05:22 Plt Count 133 X10^3/uL (150.0-450.0) L 02/04/22 05:22 Plt Count Comment Adequate (ADEQUATE) 02/03/22 05:26 MPV 10.5 fL (7.4-11.0) 02/04/22 05:22 Neut % (Auto) 89.4 % (42.0-75.0) H 02/04/22 05:22 Lymph % (Auto) 6.6 % (21.0-51.0) L 02/04/22 05:22 [place] % (Auto) 3.7 % (0.0-13.0) 02/04/22 05:22 Eos % (Auto) 0.0 % (0.9-2.9) L 02/04/22 05:22 Baso % (Auto) 0.3 % (0.2-1.0) 02/04/22 05:22 Neut # (Auto) 16.3 x10^3/uL (2.2-4.8) H 02/04/22 05:22 Lymph # (Auto) 1.2 X10^3/uL (1.3-2.9) L 02/04/22 05:22 [place] # (Auto) 0.7 x10^3/uL (0.3-0.8) 02/04/22 05:22 Eos # (Auto) 0.0 x10^3/uL (0.0-0.2) 02/04/22 05:22 Baso # (Auto) 0.0 X10^3/uL (0.0-0.1) 02/04/22 05:22 Absolute Nucleated RBC 0.0 /100WBC 02/04/22 05:22 Total Counted 100 02/03/22 05:26 Neutrophils % (Manual) 58 % (39-76) 02/03/22 05:26 Band Neutrophils % 17 % (0-10) H 02/03/22 05:26 Lymphocytes % (Manual) 15 % (13-43) 02/03/22 05:26 Monocytes % (Manual) 9 % (4-9) 02/03/22 05:26 Metamyelocytes % 1 02/03/22 05:26 Plt Morphology Comment Normal (NORMAL) 02/03/22 05:26 RBC Morphology Normal (NORMAL) 02/03/22 05:26 Sodium 138 mmol/L (136-145) 02/04/22 05:22 Corrected Sodium 139 mmol/L (136-145) 02/04/22 05:22 Potassium 4.2 mmol/L (3.5-5.1) 02/04/22 05:22 Chloride 106 mmol/L (98-107) 02/04/22 05:22 Carbon Dioxide 25.0 mmol/L (21-32) 02/04/22 05:22 BUN 15 mg/dL (7-18) 02/04/22 05:22 Creatinine 0.68 mg/dL (0.55-1.02) 02/04/22 05:22 Est GFR (MDRD) Af Amer > 60 (>60) 02/04/22 05:22 Est GFR (MDRD) Non-Af > 60 (>60) 02/04/22 05:22 Glucose 134 mg/dL (65-99) H 02/04/22 05:22 POC Glucose (mg/dL) 135 mg/dL (65-99) H 02/04/22 05:39 Calcium 8.0 mg/dL (8.5-10.1) L 02/04/22 05:22 Corrected Calcium 9.3 mg/dL (8.5-10.1) 02/04/22 05:22 Total Bilirubin 0.40 mg/dL (0.2-1.0) 02/04/22 05:22 AST 34 Units/L (15-37) 02/04/22 05:22 ALT 21 Units/L (12-78) 02/04/22 05:22 Alkaline Phosphatase 66 Units/L (46-116) 02/04/22 05:22 Total Protein 6.5 g/dL (6.4-8.2) 02/04/22 05:22 Albumin 2.4 g/dL (3.4-5.0) L 02/04/22 05:22 Globulin 4.1 g/dL (2.5-4.5) 02/04/22 05:22 Albumin/Globulin Ratio 0.6 Ratio (1.1-2.1) L 02/04/22 05:22 Amylase 24 Units/L (25-115) L 02/03/22 05:26 Lipase 20 Units/L (73-393) L 02/03/22 05:26 Specimen Type Clean catch urine 02/02/22 12:10 Urine Color Yellow (YELLOW) 02/02/22 12:10 Urine Appearance Clear (CLEAR) 02/02/22 12:10 Urine pH 7.0 (5.0 - 8.0) 02/02/22 12:10 Ur Specific [place] 1.015 (1.000-1.030) 02/02/22 12:10 Urine Protein Negative (NEGATIVE) 02/02/22 12:10 Urine Glucose (UA) 4+ (NEGATIVE) 02/02/22 12:10 Urine Ketones Negative (NEGATIVE) 02/02/22 12:10 Urine Blood Negative (NEGATIVE) 02/02/22 12:10 Urine Nitrite Negative (NEGATIVE) 02/02/22 12:10 Urine Bilirubin Negative (NEGATIVE) 02/02/22 12:10 Urine Urobilinogen Normal (NORMAL) 02/02/22 12:10 Ur Leukocyte Esterase 2+ (NEGATIVE) 02/02/22 12:10 Urine RBC None seen /HPF (0-3) 02/02/22 12:10 Urine WBC 0-2 /HPF (0-5) 02/02/22 12:10 Ur Squamous Epith Cells Few /HPF (NEGATIVE) 02/02/22 12:10 Urine Bacteria Negative /HPF (NEGATIVE) 02/02/22 12:10 Ur Culture Indicated? No/not indicated 02/02/22 12:10 SARS-CoV-2 (PCR) Negative (NEGATIVE) 02/02/22 10:49 Influenza Type A (PCR) Negative (NEGATIVE) 02/02/22 10:49 Influenza Type B (PCR) Negative (NEGATIVE) 02/02/22 10:49 RSV (PCR) Negative (NEGATIVE) 02/02/22 10:49 Tissue Pathology To follow 02/03/22 10:00 Radiology Reviewed: Yes Plan (1) RUQ pain: Status: Acute Plan: Patient is postop day 1 for cholecystectomy. (2) Hx of seizure disorder: Status: Acute (3) Leukocytosis: Status: Acute Narrative Support Text: Leukocytosis was secondary to right upper lobe pneumonia and acute cholecystitis. Plan: Continue IV Zosyn. (4) Right upper lobe pneumonia: Status: Acute Plan: Continue IV Zosyn and patient at this time. Recheck CBC and chest x-ray tomorrow morning. Also check sputum cultures as well. (5) S/P cholecystectomy: Status: Acute Plan: Treatment per general surgery.
[2022-02-04] MEDS: REGLAN TAB 10 MG PO SCH ×2 (10:24→10:58)
[2022-02-04] MEDS ORDERED: CLARITIN PO SCH (11:00)
[2022-02-04] MEDS ORDERED: XOPENEX 1.25 MG/3 ML NEBULE NEB SCH (12:00)
--- NOTE | 2022-02-04 12:43 | RAD ---
HISTORYCommunity pneumoniaSTUDYPortable AP chestCOMPARISONAugust 2021FINDINGSThere is persistent but improved linear infiltrate in the left upper lobe. The heart and lungs are unremarkable otherwise. There is no new abnormality or developing pleural effusion.IMPRESSIONImproving left upper lobe pneumonia. Continued follow-up indicated.Electronically signed by: KIKA PEARSON (Feb 04, 2022 12:41:53)
--- NOTE | 2022-02-04 13:10 | PCM.DCPLAN ---
DISCHARGE SUMMARY Admission Diagnoses (1) RUQ pain: Status: Acute (2) Hx of seizure disorder: Status: Acute (3) Leukocytosis: Status: Acute (4) S/P cholecystectomy: Status: Acute (5) Left upper lobe pneumonia: Status: Acute Discharge Diagnoses Discharge Diagnosis: 1. Right upper quadrant pain secondary to acute cholecystitis 2. History of seizure disorder 3. Leukocytosis secondary to left upper lobe pneumonia and acute cholecystitis 4. Status postcholecystectomy Discharge Medications Discharge Medications: Home Medication List buprenorphine 8 mg-naloxone 2 mg sublingual tablet 0.5 tab sublingual HS 02/04/22 [History] buprenorphine 8 mg-naloxone 2 mg sublingual tablet 1 tab sublingual QDAY 02/04/22 [History] cefuroxime axetil 500 mg tablet 500 mg PO Q12H #20 tabs 02/04/22 [Rx] ciprofloxacin HCl 500 mg tablet (Cipro) 500 mg PO BID 10 days #20 tabs 02/04/22 [Rx] dapagliflozin 10 mg-metformin ER 1,000 mg tablet,extended release 24hr (Xigduo XR) 1 tab PO QDAY 02/04/22 [History] ibuprofen 800 mg tablet 800 mg PO TID PRN 02/04/22 [History] insulin aspart U-100 100 unit/mL (3 mL) subcutaneous pen (Novolog Flexpen U-100 Insulin aspart) 5 unit subcut TID 02/04/22 [History] insulin degludec 100 unit/mL (3 mL) subcutaneous pen (Tresiba FlexTouch U-100 insulin) 35 unit subcut QHS 02/04/22 [History] linaclotide 72 mcg capsule (Linzess) 72 mcg PO QAM 02/04/22 [History] loratadine 10 mg tablet 10 mg PO QDAY 02/04/22 [History] metoclopramide HCl 10 mg tablet 10 mg PO QACHS 02/04/22 [History] phentermine 37.5 mg tablet 37.5 mg PO DAILY 02/04/22 [History] Prescriptions: cefuroxime axetil BESSIE CALHOUN ciprofloxacin HCl [Cipro[facility] Vital Signs: Temperature 98.2 F Pulse Rate [Left Radial] 82 Pulse Rate 91 Respiratory Rate 20 Blood Pressure [Left Arm] 135/86 Blood Pressure 113/58 O2 Sat by Pulse Oximetry 97 Latest Lab Results: Laboratory Last Values WBC 18.2 X10^3/uL (3.6-10.0) H D 02/04/22 05:22 RBC 3.80 X10^6/uL (3.5-5.4) 02/04/22 05:22 Hgb 10.5 g/dL (12.0-16.0) L 02/04/22 05:22 Hct 31.6 % (36.0-47.0) L 02/04/22 05:22 MCV 83.1 fL (80.0-100.0) 02/04/22 05:22 MCH 27.7 pg (27.0-34.0) 02/04/22 05:22 MCHC 33.3 g/dL (33.0-35.0) 02/04/22 05:22 RDW 14.8 % (11.6-16.5) 02/04/22 05:22 Plt Count 133 X10^3/uL (150.0-450.0) L 02/04/22 05:22 Plt Count Comment Adequate (ADEQUATE) 02/03/22 05:26 MPV 10.5 fL (7.4-11.0) 02/04/22 05:22 Neut % (Auto) 89.4 % (42.0-75.0) H 02/04/22 05:22 Lymph % (Auto) 6.6 % (21.0-51.0) L 02/04/22 05:22 [place] % (Auto) 3.7 % (0.0-13.0) 02/04/22 05:22 Eos % (Auto) 0.0 % (0.9-2.9) L 02/04/22 05:22 Baso % (Auto) 0.3 % (0.2-1.0) 02/04/22 05:22 Neut # (Auto) 16.3 x10^3/uL (2.2-4.8) H 02/04/22 05:22 Lymph # (Auto) 1.2 X10^3/uL (1.3-2.9) L 02/04/22 05:22 [place] # (Auto) 0.7 x10^3/uL (0.3-0.8) 02/04/22 05:22 Eos # (Auto) 0.0 x10^3/uL (0.0-0.2) 02/04/22 05:22 Baso # (Auto) 0.0 X10^3/uL (0.0-0.1) 02/04/22 05:22 Absolute Nucleated RBC 0.0 /100WBC 02/04/22 05:22 Total Counted 100 02/03/22 05:26 Neutrophils % (Manual) 58 % (39-76) 02/03/22 05:26 Band Neutrophils % 17 % (0-10) H 02/03/22 05:26 Lymphocytes % (Manual) 15 % (13-43) 02/03/22 05:26 Monocytes % (Manual) 9 % (4-9) 02/03/22 05:26 Metamyelocytes % 1 02/03/22 05:26 Plt Morphology Comment Normal (NORMAL) 02/03/22 05:26 RBC Morphology Normal (NORMAL) 02/03/22 05:26 Sodium 138 mmol/L (136-145) 02/04/22 05:22 Corrected Sodium 139 mmol/L (136-145) 02/04/22 05:22 Potassium 4.2 mmol/L (3.5-5.1) 02/04/22 05:22 Chloride 106 mmol/L (98-107) 02/04/22 05:22 Carbon Dioxide 25.0 mmol/L (21-32) 02/04/22 05:22 BUN 15 mg/dL (7-18) 02/04/22 05:22 Creatinine 0.68 mg/dL (0.55-1.02) 02/04/22 05:22 Est GFR (MDRD) Af Amer > 60 (>60) 02/04/22 05:22 Est GFR (MDRD) Non-Af > 60 (>60) 02/04/22 05:22 Glucose 134 mg/dL (65-99) H 02/04/22 05:22 POC Glucose (mg/dL) 118 mg/dL (65-99) H 02/04/22 11:49 Calcium 8.0 mg/dL (8.5-10.1) L 02/04/22 05:22 Corrected Calcium 9.3 mg/dL (8.5-10.1) 02/04/22 05:22 Total Bilirubin 0.40 mg/dL (0.2-1.0) 02/04/22 05:22 AST 34 Units/L (15-37) 02/04/22 05:22 ALT 21 Units/L (12-78) 02/04/22 05:22 Alkaline Phosphatase 66 Units/L (46-116) 02/04/22 05:22 Total Protein 6.5 g/dL (6.4-8.2) 02/04/22 05:22 Albumin 2.4 g/dL (3.4-5.0) L 02/04/22 05:22 Globulin 4.1 g/dL (2.5-4.5) 02/04/22 05:22 Albumin/Globulin Ratio 0.6 Ratio (1.1-2.1) L 02/04/22 05:22 Amylase 24 Units/L (25-115) L 02/03/22 05:26 Lipase 20 Units/L (73-393) L 02/03/22 05:26 Specimen Type Clean catch urine 02/02/22 12:10 Urine Color Yellow (YELLOW) 02/02/22 12:10 Urine Appearance Clear (CLEAR) 02/02/22 12:10 Urine pH 7.0 (5.0 - 8.0) 02/02/22 12:10 Ur Specific [place] 1.015 (1.000-1.030) 02/02/22 12:10 Urine Protein Negative (NEGATIVE) 02/02/22 12:10 Urine Glucose (UA) 4+ (NEGATIVE) 02/02/22 12:10 Urine Ketones Negative (NEGATIVE) 02/02/22 12:10 Urine Blood Negative (NEGATIVE) 02/02/22 12:10 Urine Nitrite Negative (NEGATIVE) 02/02/22 12:10 Urine Bilirubin Negative (NEGATIVE) 02/02/22 12:10 Urine Urobilinogen Normal (NORMAL) 02/02/22 12:10 Ur Leukocyte Esterase 2+ (NEGATIVE) 02/02/22 12:10 Urine RBC None seen /HPF (0-3) 02/02/22 12:10 Urine WBC 0-2 /HPF (0-5) 02/02/22 12:10 Ur Squamous Epith Cells Few /HPF (NEGATIVE) 02/02/22 12:10 Urine Bacteria Negative /HPF (NEGATIVE) 02/02/22 12:10 Ur Culture Indicated? No/not indicated 02/02/22 12:10 SARS-CoV-2 (PCR) Negative (NEGATIVE) 02/02/22 10:49 Influenza Type A (PCR) Negative (NEGATIVE) 02/02/22 10:49 Influenza Type B (PCR) Negative (NEGATIVE) 02/02/22 10:49 RSV (PCR) Negative (NEGATIVE) 02/02/22 10:49 Tissue Pathology To follow 02/03/22 10:00 Hospital Course: Following admission patient was given Dilaudid for pain control and IV fluid. She was started on IV Zosyn and the next day ciprofloxacin was added IV as well. Chest x-ray revealed that she had a left upper lobe pneumonia accounting for her profound leukocytosis and also from her acute cholecystitis. She underwent a cholecystectomy on the second day of admission without any problems and postop. She did well yesterday after her surgery and by this morning her white blood cell count has come down from 26,000- 18,200. She is adamant about going home this morning and feels much better than she did when she came in a couple days ago. Patient will be discharged home in stable condition and she will be following up with her primary care provider Dr. Mary Simpson in [place], [place]. She also be following up for postop care with general surgeon, Dr. Vuong. She will resume her regular home medications as before and will also start her on cefuroxime 500 mg p.o. twice daily for 10 days and she will also continue ciprofloxacin 500 mg p.o. twice daily.
[2022-02-04] MEDS ORDERED: NS 100 ML IV 100 ML ONE (13:41)
[2022-02-04 16:08] VITALS: BP 167/83
[2022-02-05] MEDS ORDERED: LINACLOTIDE 72 MCG PO SCH (09:00)
== END 2022-02-04 16:05 | disposition home or self-care (01) ==
LOC: MED/SURG 10:21 → ER 10:21 → MED/SURG 16:45
PROVIDERS: ADMIT Family Medicine; ATTEND Family Medicine
DX: R10.13 Epigastric pain; D72.829 Elevated white blood cell count, unspecified; Z86.69 Personal history of other diseases of the nervous system and sense organs; E86.0 Dehydration; R94.31 Abnormal electrocardiogram [ECG] [EKG]; N20.0 Calculus of kidney; J18.8 Other pneumonia, unspecified organism; R10.11 Right upper quadrant pain; K76.0 Fatty (change of) liver, not elsewhere classified; R06.02 Shortness of breath; G40.802 Other epilepsy, not intractable, without status epilepticus; K81.2 Acute cholecystitis with chronic cholecystitis; Z20.822 Contact with and (suspected) exposure to COVID-19; E11.65 Type 2 diabetes mellitus with hyperglycemia; I10 Essential (primary) hypertension

== ENCOUNTER 2022-02-06 13:40 | Inpatient (IN) ==
[2022-02-06 13:45] VITALS: BMI 29.9
[2022-02-06 14:11] LABS: BASOPHILS % (AUTO) 0.1 % (0.2-1.0); EOSINOPHILS # (AUTO) 0.1 x10^3/uL (0.0-0.2); EOSINOPHILS % (AUTO) 0.3 % (0.9-2.9); HEMATOCRIT 40.2 % (36.0-47.0); HEMOGLOBIN 13.2 g/dL (12.0-16.0); LYMPHOCYTES # (AUTO) 0.8 X10^3/uL (1.3-2.9); MEAN CORPUSCULAR HEMOGLOBIN 27.4 pg (27.0-34.0); MEAN CORPUSCULAR HGB CONC 32.9 g/dL (33.0-35.0); MEAN CORPUSCULAR VOLUME 83.2 fL (80.0-100.0); MEAN PLATELET VOLUME 9.5 fL (7.4-11.0); MONOCYTES # (AUTO) 1.2 x10^3/uL (0.3-0.8); MONOCYTES % (AUTO) 4.3 % (0.0-13.0); NEUTROPHILS # (AUTO) 25.2 x10^3/uL (2.2-4.8); NEUTROPHILS % (AUTO) 92.3 % (42.0-75.0); RED BLOOD COUNT 4.83 X10^6/uL (3.5-5.4); RED CELL DISTRIBUTION WIDTH 14.5 % (11.6-16.5); WHITE BLOOD COUNT 27.3 X10^3/uL (3.6-10.0)
[2022-02-06 14:27] LABS: ALANINE AMINOTRANSFERASE 24 Units/L (12-78); ALBUMIN 2.9 g/dL (3.4-5.0); ALKALINE PHOSPHATASE 89 Units/L (46-116); ASPARTATE AMINO TRANSFERASE 25 Units/L (15-37); BLOOD UREA NITROGEN 13 mg/dL (7-18); CALCIUM 8.6 mg/dL (8.5-10.1); CHLORIDE 103 mmol/L (98-107); COR CA(FOR HYPOALB) 9.5 mg/dL (8.5-10.1); COR NA(FOR HYPERGLY) 141 mmol/L (136-145); CREATINE KINASE 11 Units/L (26-192); CREATININE 0.67 mg/dL (0.55-1.02); SODIUM 139 mmol/L (136-145); TOTAL PROTEIN 7.5 g/dL (6.4-8.2); eGFR NON BLACK RACES > 60 (>60)
[2022-02-06 14:29] LABS: PLATELET MORPHOLOGY COMMENT NORMAL (NORMAL)
[2022-02-06] MEDS ORDERED: NS 100 ML IV 100 ML ONE (14:42)
[2022-02-06 15:22] LABS: BILIRUBIN,URINE NEGATIVE (NEGATIVE); BLOOD/HEMOGLOBIN,URINE NEGATIVE (NEGATIVE); GLUCOSE, URINE 4+ (NEGATIVE); KETONES,URINE NEGATIVE (NEGATIVE); LEUKOCYTE ESTERASE ,URINE NEGATIVE (NEGATIVE); NITRITES,URINE NEGATIVE (NEGATIVE); PH,URINE 6.5 (5.0 - 8.0); PROTEIN,URINE NEGATIVE (NEGATIVE); UROBILINOGEN,URINE 2+ (NORMAL)
--- NOTE | 2022-02-06 15:28 | CT ---
HISTORYSHORT OF BREATH, ELEVATED DDIMER.br. Evaluate pulmonary embolus. Hypertension and diabetes.STUDYCTA CHESTCOMPARISONChest radiograph 02/06/2022TECHNIQUEMultiple CT axial images of the chest were obtained with IV contrast. Coronal and sagittal images were reconstructed. 3D reconstructions using axial MIPS imaging was performed and reviewed. Dose reduction techniques included Automated Exposure Control (AEC) and adjustment of mA and kV.Stenoses are measured using NASCET criteria.FINDINGSPulmonary arteries are identified to segmental branches. There are no pulmonary emboli.Heart size at the upper limits of normal.Atherosclerotic calcification is present in the coronary arteries.The pulmonary artery and aorta have a normal caliber. No mediastinal mass or significant lymphadenopathy.Surgical clips from left thyroidectomy. Right lobe thyroid is unremarkable.No axillary mass or significant axillary lymphadenopathy is identified.Focal areas of ground-glass and airspace opacity are present consistent with bronchopneumonia. Most prominent in the anterior right upper lobe and the anterior left upper lobe. No pleural effusion or pneumothorax.Focal edematous changes seen in the gallbladder fossa with minimal fluid. I suspect this is probably from a recent laparoscopic cholecystectomy since there are surgical clips in the upper midline abdomen. Small volume perihepatic free fluid is present.Degenerative changes are present in the spine.IMPRESSION1. No pulmonary emboli2. Bilateral bronchopneumonia3. Probable usual postsurgical changes in the upper abdomenElectronically signed by: Héctor Rouse (Feb 06, 2022 15:26:37)
--- NOTE | 2022-02-06 15:29 | RAD ---
HISTORYSOBSTUDYCHEST, 1 VIEWCOMPARISONAugust 2021 at 11:18 a.m.TECHNIQUEChest radiographic imaging 1 view AP projectionFINDINGSNo cardiomegalySmall band of airspace disease in the inferior aspect of the right upper lobe and throughout the lateral aspect of the left upper lobe.No acute osseous abnormality.No pleural effusion.No pneumothorax.Soft tissues are unremarkable.No acute osseous abnormality.IMPRESSIONNo significant interval acute cardiopulmonary changes.Electronically signed by: Stephen Schulte (Feb 06, 2022 15:28:50)
[2022-02-06 15:31] LABS: APPEARANCE,URINE SLIGHTLY HAZY (CLEAR); COLOR,URINE YELLOW (YELLOW)
[2022-02-06 15:32] LABS: BACTERIA,URINE TRACE /HPF (NEGATIVE); RBC,URINE 0-2 /HPF (0-3); SQUAMOUS EPITHELIAL CELL,UR MODERATE /HPF (NEGATIVE); YEAST,URINE FEW /HPF (NEGATIVE)
--- NOTE | 2022-02-06 15:53 | DR.SOBA ---
HPI Time Seen Time Seen by Provider: 02/06/22 15:47 Primary Care Physician Primary Care Physician: EDMAR CAMPOS HPI Comment HPI Comment: A 51 y/o female presenting with SOB, Lt. arm pain, diaphoresis and nausea. Symptoms started thhis morning. She is s/p lap. cholecystectomy x 3 days. She has cough Complaints Chief Complaint:: PATIENT IS NOTED TO BE DISCHARGED ON SATURDAY 02/03. POST OP CHOLECYTECTOMY. PATIENT IS HAVING SEVERE PAIN TO LT ARM, SHORTNESS OF BREATH, ABD PAIN AND NAUSEATED. COVID-19 Coronavirus risk:travel/contact w/high risk person: No Has patient experienced Coronavirus symptoms: No Coronavirus symptoms experienced: Shortness of Breath Reviewed Nurses Notes Reviewed: Yes Source History Provided: Patient and Family Member Mode of Arrival Mode of Arrival: Wheelchair Timing Onset of Chief Complaint: 02/06/22 Context Onset:: At Rest PE Risk Factors:: Recent Surgery History of:: None Currently on:: Neither Prehospital Care:: None Modifying Factors Worsens:: Nothing Associated Signs and Symptoms Associated Signs and Symptoms: Cough If Cough Cough: Nonproductive PMH PMH Past Medical History: Yes Past Medical History: Diabetes, Hypertension and Seizures Past Surgical History: Yes Surgical History: Cholecystectomy, Hysterectomy and Thyroidectomy Family History History of Family Medical Conditions: Yes Family Medical History: Diabetes Mellitus, Cancer, [place], Coronary Artery Disease and Hypertension Social History Does any household member use tobacco: No Alcohol Use: None Do you use any recreational Drugs:: No Lives With: Family Lives Where: Home Travel Risk Coronavirus risk:travel/contact w/high risk person: No Has patient experienced Coronavirus symptoms: No Infectious screening In the last 2 months have you had wt loss of >10#?: NO Have you had fever, night sweats or hemotysis?: No Have you traveled outside the country in the last 6 months?: No Isolation: Standard ROS Review of Systems Constitutional: No Symptoms Reported Eyes: No Symptoms Reported ENTM: No Symptoms Reported Respiratoy: Non-Productive Cough and Short of Breath Cardiovascular: No Symptoms Reported Gastrointestinal/Abdominal: No Symptoms Reported Genitourinary: No Symptoms Reported Neurological: No Symptoms Reported Musculoskeletal: No Symptoms Reported Integumentary: No Symptoms Reported Hematologic/Lymphatic: No Symptoms Reported Endocrine: No Symptoms Reported Psychiatric: No Symptoms Reported All Other Systems: Reviewed and Negative PE Vital Signs Vitals: Temperature 98.3 F Pulse Rate 97 Respiratory Rate 12 Blood Pressure [Left Arm] 167/83 Blood Pressure 126/73 O2 Sat by Pulse Oximetry 97 General Limitations: No Limitations General Appearance: Alert and In No Apparent Distress Head Head Exam: Normal Inspection, Atraumatic and Normocephalic Eyes Eye exam: Normal Appearance and EOMI ENT ENT Exam: Normal Exam, Normal Oropharynx, Normal External Ear Exam and Mucous Membranes Moist Neck Neck Exam: Normal Inspection, Full ROM and Trachea Midline Chest Chest Inspection: Normal Inspection and Symmetric Chest Wall Rise Respiratory Respiratory Exam: Normal Lung Sounds Bilat Cardiovascular Cardiovascular Exam: Regular Rate, Normal Rhythm, Normal Heart Sounds, +S1 and +S2 Abdominal Exam Abdominal Exam: Normal Inspection, Normal Bowel Sounds and Soft Extremities Extremities Exam: Normal Inspection and Full ROM Back Back Exam: Normal Inspection and Full ROM Neurologic Neurological Exam: Alert and Oriented X3 Psychiatric Psychiatric Exam: Normal Affect and Normal Mood Skin Skin Exam: Dry, Intact and Normal Color COURSE Treatment Treatment: Tests were discussed with the pt. and her family. The on-call provider agrees to in-house admission to treat. Reevaluation 1st: Improved Consultation Consultation Comments: Name: DONA NUNES [facility]#: [id number]: [id number]: [id number]: FLocation: EROrder Number(s): [id number](s):CHEST, 1 VIEW Ordering Physician: FELICIANO ENRIQUEZ Primary Care: LYNN NUNES Service Date: 02/06/22 Service Time: 1353 HISTORY SOB STUDY CHEST, 1 VIEW COMPARISON February 04, 2022 at 11:18 a.m. TECHNIQUE Chest radiographic imaging 1 view AP projection FINDINGS No cardiomegaly Small band of airspace disease in the inferior aspect of the right upper lobe and throughout the lateral aspect of the left upper lobe. No acute osseous abnormality. No pleural effusion. No pneumothorax. Soft tissues are unremarkable. No acute osseous abnormality. IMPRESSION No significant interval acute cardiopulmonary changes. Electronically signed by: Stephen Schulte (Feb 06, 2022 15:28:50) Report Electronically signed: 02/06/22 1529 CC: Feliciano Enriquez Education/Counseling Education/Counseling: Patient, Family, Education and Counseling Educated On: Treatment, Diagnosis, Prognosis and Needs for Follow Up ROR Labs Reviewed Laboratory Results Reviewed?: Yes Result Diagrams: 02/06/22 14:03 02/06/22 14:03 Laboratory: WBC 27.3 X10^3/uL (3.6-10.0) H D 02/06/22 14:03 RBC 4.83 X10^6/uL (3.5-5.4) 02/06/22 14:03 Hgb 13.2 g/dL (12.0-16.0) D 02/06/22 14:03 Hct 40.2 % (36.0-47.0) 02/06/22 14:03 MCV 83.2 fL (80.0-100.0) 02/06/22 14:03 MCH 27.4 pg (27.0-34.0) 02/06/22 14:03 MCHC 32.9 g/dL (33.0-35.0) L 02/06/22 14:03 RDW 14.5 % (11.6-16.5) 02/06/22 14:03 Plt Count 222 X10^3/uL (150.0-450.0) 02/06/22 14:03 Plt Count Comment Adequate (ADEQUATE) 02/06/22 14:03 MPV 9.5 fL (7.4-11.0) 02/06/22 14:03 Neut % (Auto) 92.3 % (42.0-75.0) H 02/06/22 14:03 Lymph % (Auto) 3.0 % (21.0-51.0) L 02/06/22 14:03 [place] % (Auto) 4.3 % (0.0-13.0) 02/06/22 14:03 Eos % (Auto) 0.3 % (0.9-2.9) L 02/06/22 14:03 Baso % (Auto) 0.1 % (0.2-1.0) L 02/06/22 14:03 Neut # (Auto) 25.2 x10^3/uL (2.2-4.8) H 02/06/22 14:03 Lymph # (Auto) 0.8 X10^3/uL (1.3-2.9) L 02/06/22 14:03 [place] # (Auto) 1.2 x10^3/uL (0.3-0.8) H 02/06/22 14:03 Eos # (Auto) 0.1 x10^3/uL (0.0-0.2) 02/06/22 14:03 Baso # (Auto) 0.0 X10^3/uL (0.0-0.1) 02/06/22 14:03 Absolute Nucleated RBC 0.0 /100WBC 02/06/22 14:03 Total Counted 100 02/06/22 14:03 Neutrophils % (Manual) 87 % (39-76) H 02/06/22 14:03 Lymphocytes % (Manual) 12 % (13-43) L 02/06/22 14:03 Monocytes % (Manual) 1 % (4-9) L 02/06/22 14:03 Plt Morphology Comment Normal (NORMAL) 02/06/22 14:03 RBC Morphology Normal (NORMAL) 02/06/22 14:03 D-Dimer 1.44 ug/ml (0.0-0.57) H 02/06/22 14:03 Sodium 139 mmol/L (136-145) 02/06/22 14:03 Corrected Sodium 141 mmol/L (136-145) 02/06/22 14:03 Potassium 3.6 mmol/L (3.5-5.1) 02/06/22 14:03 Chloride 103 mmol/L (98-107) 02/06/22 14:03 Carbon Dioxide 28.0 mmol/L (21-32) 02/06/22 14:03 BUN 13 mg/dL (7-18) 02/06/22 14:03 Creatinine 0.67 mg/dL (0.55-1.02) 02/06/22 14:03 Est GFR (MDRD) Af Amer > 60 (>60) 02/06/22 14:03 Est GFR (MDRD) Non-Af > 60 (>60) 02/06/22 14:03 Glucose 170 mg/dL (65-99) H 02/06/22 14:03 Lactic Acid 0.9 mmol/L (0.4-2.0) 02/06/22 15:20 Calcium 8.6 mg/dL (8.5-10.1) 02/06/22 14:03 Corrected Calcium 9.5 mg/dL (8.5-10.1) 02/06/22 14:03 Total Bilirubin 1.10 mg/dL (0.2-1.0) H 02/06/22 14:03 AST 25 Units/L (15-37) 02/06/22 14:03 ALT 24 Units/L (12-78) 02/06/22 14:03 Alkaline Phosphatase 89 Units/L (46-116) 02/06/22 14:03 Creatine Kinase 11 Units/L (26-192) L 02/06/22 14:03 Troponin I High Sens 5.2 ng/L (4.0-60.0) 02/06/22 14:03 Total Protein 7.5 g/dL (6.4-8.2) 02/06/22 14:03 Albumin 2.9 g/dL (3.4-5.0) L 02/06/22 14:03 Globulin 4.6 g/dL (2.5-4.5) H 02/06/22 14:03 Albumin/Globulin Ratio 0.6 Ratio (1.1-2.1) L 02/06/22 14:03 Specimen Type Clean catch urine 02/06/22 15:04 Urine Color Yellow (YELLOW) 02/06/22 15:04 Urine Appearance Slightly hazy (CLEAR) 02/06/22 15:04 Urine pH 6.5 (5.0 - 8.0) 02/06/22 15:04 Ur Specific [place] 1.015 (1.000-1.030) 02/06/22 15:04 Urine Protein Negative (NEGATIVE) 02/06/22 15:04 Urine Glucose (UA) 4+ (NEGATIVE) 02/06/22 15:04 Urine Ketones Negative (NEGATIVE) 02/06/22 15:04 Urine Blood Negative (NEGATIVE) 02/06/22 15:04 Urine Nitrite Negative (NEGATIVE) 02/06/22 15:04 Urine Bilirubin Negative (NEGATIVE) 02/06/22 15:04 Urine Urobilinogen 2+ (NORMAL) 02/06/22 15:04 Ur Leukocyte Esterase Negative (NEGATIVE) 02/06/22 15:04 Urine RBC 0-2 /HPF (0-3) 02/06/22 15:04 Urine WBC None seen /HPF (0-5) 02/06/22 15:04 Ur Squamous Epith Cells Moderate /HPF (NEGATIVE) 02/06/22 15:04 Urine Bacteria Trace /HPF (NEGATIVE) 02/06/22 15:04 Urine Yeast Few /HPF (NEGATIVE) 02/06/22 15:04 Ur Culture Indicated? No/not indicated 02/06/22 15:04 SARS-CoV-2 (PCR) Negative (NEGATIVE) 02/06/22 15:17 Influenza Type A (PCR) Negative (NEGATIVE) 02/06/22 15:17 Influenza Type B (PCR) Negative (NEGATIVE) 02/06/22 15:17 RSV (PCR) Negative (NEGATIVE) 02/06/22 15:17 EKG Rate: 92 Sandy: Normal Rhythm: NSR Block: None Hypertrophy: LVH ST: Nonsp Opioid Opioid Risk Tool Age (Tenzin box if 16-45): No History of Preadolescent Sexual Abuse: No Total: 0 Total Score Risk Category: Low Risk Copyright: Burton PEGGY predicting aberrant behaviors Discharge Plan Diagnosis Discharge Problem: Bronchopneumonia, Hx of seizure disorder, D-dimer, elevated, Neutrophilic leukocytosis Discharge Plan Patient Disposition: 09 ADMITTED INPATIENT Condition: Stable Prescriptions: No Action phentermine 37.5 mg Tablet 37.5 mg PO DAILY metoclopramide HCl 10 mg Tablet 10 mg PO QACHS buprenorphine-naloxone 8-2 mg Tablet, Sublingual 1 tab SUBLINGUAL QDAY loratadine 10 mg Tablet 10 mg PO QDAY insulin aspart U-100 [Novolog Flexpen U-100 Insulin] 100 unit/mL (3 mL) Insulin Pen 5 unit SUBCUT TID Rx Instructions: also does a sliding scale that was given to her per for between meals. Tresiba FlexTouch U-100 100 unit/mL (3 mL) Insulin Pen 35 unit SUBCUT QHS Xigduo XR 10-1,000 mg Tablet, Ir - Er, Biphasic 24hr 1 tab PO QDAY Linzess 72 mcg Capsule 72 mcg PO QAM cefuroxime axetil 500 mg tablet 500 mg PO Q12H Qty: 20 0RF Health Concerns: Post Hospitalization: new medications and changes needed to prevent readmission or further decline. Pt educated and given instructions on all concerns. Plan of Treatment: Continue with present treatment and follow up plan. Pt is to keep follow up appointment as instructed and take medications as ordered. Orders to Discharge Patient Discharge Orders: Transfer (Routine); Ordered 02/06/22 Ordered By: FELICIANO ENRIQUEZ Follow ups/Referrals Follow ups/Referrals: LYNN NUNES [Primary Care Provider] - 3 days ADDITIONAL NOTES Additional Notes Additional Notes: Name: DONA NUNESt#: [id number]: [id number]: [id number]: FLocation: EROrder Number(s): [id number](s):CTA, CHEST Ordering Physician: FELICIANO ENRIQUEZ Primary Care: LYNN NUNES Service Date: 02/06/22 Service Time: 1437 HISTORY SHORT OF BREATH, ELEVATED DDIMER.br. Evaluate pulmonary embolus. Hypertension and diabetes. STUDY CTA CHEST COMPARISON Chest radiograph 02/06/[address] axial images of the chest were obtained with IV contrast. Coronal and sagittal images were reconstructed. 3D reconstructions using axial MIPS imaging was performed and reviewed. Dose reduction techniques included Automated Exposure Control (AEC) and adjustment of mA and kV. Stenoses are measured using NASCET criteria. FINDINGS Pulmonary arteries are identified to segmental branches. There are no pulmonary emboli. Heart size at the upper limits of normal.Atherosclerotic calcification is present in the coronary arteries.The pulmonary artery and aorta have a normal caliber. No mediastinal mass or significant lymphadenopathy. Surgical clips from left thyroidectomy. Right lobe thyroid is unremarkable.No axillary mass or significant axillary lymphadenopathy is identified. Focal areas of ground-glass and airspace opacity are present consistent with bronchopneumonia. Most prominent in the anterior right upper lobe and the anterior left upper lobe. No pleural effusion or pneumothorax. Focal edematous changes seen in the gallbladder fossa with minimal fluid. I suspect this is probably from a recent laparoscopic cholecystectomy since there are surgical clips in the upper midline abdomen. Small volume perihepatic free fluid is present. Degenerative changes are present in the spine. IMPRESSION 1. No pulmonary emboli 2. Bilateral bronchopneumonia 3. Probable usual postsurgical changes in the upper abdomen Electronically signed by: Héctor Rouse (Feb 06, 2022 15:26:37) Report Electronically signed: 02/06/22 1528 CC: Feliciano Enriquez
[2022-02-06] MEDS ORDERED: LEVAQUIN PREMIX IV 500 MG 500 MG/100 ML BAG IV ONE ×2 (15:58→16:04)
[2022-02-06] MEDS ORDERED: NS 1,000 ML IV 1,000 ML ONE (16:05)
[2022-02-06] MEDS: NS 1,000 ML IV 1,000 ML IV SCH (16:11)
[2022-02-06] MEDS ORDERED: SALINE 3% 15 ML NEB TX ONE (18:04)
[2022-02-06] MEDS ORDERED: SALINE 3% 15 ML NEB TX NEB ONE (18:09)
[2022-02-06] MEDS ORDERED: ZOFRAN INJ 4 MG VIAL IVP PRN (19:03)
[2022-02-06] MEDS: TYLENOL 325 MG TAB PO PRN (19:58)
[2022-02-06] MEDS: PULMICORT NEB TX 0.5 MG NEB SCH (20:45)
[2022-02-06] MEDS: DUONEB 0.5 MG/3 MG (3 mL) NEB SCH (20:45)
[2022-02-06] MEDS: REGLAN TAB 10 MG PO SCH (20:50)
[2022-02-06] MEDS: ROBITUSSIN DM PO SCH (20:51)
[2022-02-06] MEDS ORDERED: PATIENT'S HOME MEDICATION (Insulin Degludec [Tresiba Flextouch U-100] 100 unit/mL (3 mL) I SUBCUT SCH (21:00)
[2022-02-06] MEDS ORDERED: PATIENT'S HOME MEDICATION (Insulin Aspart U-100 [Novolog Flexpen U-100 Insulin] 100 unit/m SUBCUT SCH (22:00)
[2022-02-07] MEDS: TYLENOL 325 MG TAB PO PRN ×4 (02:00→20:49)
[2022-02-07 02:22] LABS: BASOPHILS % (AUTO) 0.2 % (0.2-1.0); HEMATOCRIT 37.4 % (36.0-47.0); HEMOGLOBIN 12.6 g/dL (12.0-16.0); LYMPHOCYTES # (AUTO) 1.6 X10^3/uL (1.3-2.9); LYMPHOCYTES % (AUTO) 6.7 % (21.0-51.0); MEAN CORPUSCULAR HEMOGLOBIN 27.5 pg (27.0-34.0); MEAN CORPUSCULAR HGB CONC 33.5 g/dL (33.0-35.0); MEAN CORPUSCULAR VOLUME 82.1 fL (80.0-100.0); MEAN PLATELET VOLUME 9.6 fL (7.4-11.0); MONOCYTES # (AUTO) 1.4 x10^3/uL (0.3-0.8); MONOCYTES % (AUTO) 6.1 % (0.0-13.0); NEUTROPHILS # (AUTO) 20.4 x10^3/uL (2.2-4.8); RED BLOOD COUNT 4.56 X10^6/uL (3.5-5.4); RED CELL DISTRIBUTION WIDTH 14.7 % (11.6-16.5); WHITE BLOOD COUNT 23.4 X10^3/uL (3.6-10.0)
[2022-02-07 02:25] LABS: ALANINE AMINOTRANSFERASE 19 Units/L (12-78); ALBUMIN 2.4 g/dL (3.4-5.0); ALKALINE PHOSPHATASE 88 Units/L (46-116); ASPARTATE AMINO TRANSFERASE 20 Units/L (15-37); BLOOD UREA NITROGEN 14 mg/dL (7-18); CALCIUM 8.3 mg/dL (8.5-10.1); CHLORIDE 103 mmol/L (98-107); COR CA(FOR HYPOALB) 9.6 mg/dL (8.5-10.1); COR NA(FOR HYPERGLY) 140 mmol/L (136-145); CREATININE 0.74 mg/dL (0.55-1.02); SODIUM 139 mmol/L (136-145); TOTAL PROTEIN 7.1 g/dL (6.4-8.2); eGFR NON BLACK RACES > 60 (>60)
[2022-02-07 02:31] LABS: BAND NEUTROPHILS % 3 % (0-10); PLATELET MORPHOLOGY COMMENT NORMAL (NORMAL)
[2022-02-07] MEDS ORDERED: POTASSIUM CHL 40 MEQ/NS 0.45% 500 ML IV PRN (02:50)
[2022-02-07] MEDS ORDERED: POTASSIUM CHL 60 MEQ/NS 0.45% 500 ML IV PRN (02:50)
[2022-02-07] MEDS ORDERED: POTASSIUM CHLORIDE LIQ 20 MEQ UDC PO PRN (02:50)
[2022-02-07] MEDS ORDERED: K-RIDER 10 MEQ/NS 100 ML 10 MEQ/100 ML BAG IV PRN (02:50)
[2022-02-07] MEDS ORDERED: KLOR-CON PO PRN (02:50)
[2022-02-07] MEDS ORDERED: MICRO K EXTEN CAP 10 MEQ PO PRN (02:50)
[2022-02-07] MEDS: MAGNESIUM SULFATE 1 GRAM/100 mL PREMIX 1 G/100 ML BAG IV PRN ×2 (03:23→04:39)
[2022-02-07] MEDS: K-DUR TAB 20 MEQ PO PRN ×2 (06:00→09:10)
--- NOTE | 2022-02-07 06:01 | RAD ---
HISTORYBilateral pneumoniaSTUDYChest two [id number]/31/2022 chest x-ray and CTA chestFINDINGSHeart size is accentuated by hypo inflation. It is likely normal. The freedom are normal. Right and left perihilar subsegmental atelectasis is identified. No definite acute infiltrates or pleural effusions identified. Bony thorax is unremarkable.IMPRESSIONHypo inflationNo definite acute infiltratesBilateral perihilar subsegmental atelectasisElectronically signed by: KODAK PEDERSEN (Feb 07, 2022 05:59:48)
[2022-02-07] MEDS: NS 1,000 ML IV 1,000 ML IV SCH ×3 (06:05→22:49)
[2022-02-07] MEDS: REGLAN TAB 10 MG PO SCH ×4 (06:22→20:49)
[2022-02-07] MEDS ORDERED: HumaLOG SC SCH (07:00)
[2022-02-07] MEDS ORDERED: NovoLIN R (or HumuLIN R) SC PRN (07:58)
[2022-02-07] MEDS: VSL#3 PO SCH (08:36)
[2022-02-07] MEDS: [UNRECOGNIZED DRUG - OTHER] PO SCH (08:36)
[2022-02-07] MEDS: DAPAGLIFLOZIN METFORMIN PO SCH (08:36)
[2022-02-07] MEDS: LEVAQUIN PREMIX IV 750 MG 750 MG/150 ML BAG IV SCH (08:36)
[2022-02-07] MEDS: ROBITUSSIN DM PO SCH ×4 (08:36→20:49)
[2022-02-07] MEDS: DUONEB 0.5 MG/3 MG (3 mL) NEB SCH ×4 (08:37→20:30)
[2022-02-07] MEDS: PULMICORT NEB TX 0.5 MG NEB SCH ×2 (08:37→20:30)
[2022-02-07] MEDS: SUBOXONE TAB SL SCH ×2 (10:00→12:25)
--- NOTE | 2022-02-07 10:21 | DR.H&P ---
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 SHE PRESENTED TO THE ER WITH COMPLAINTS OF SHORTNESS OF BREATH, LEFT ARM PAIN, DIAPHORESIS, COUGH, AND NAUSEA. HER SYMPTOMS STARTED EARLIER IN THE DAY. SHE IS DAY 4 S/P CHOLECYSTECTOMY. HER PMH INCLUDES DM II, HTN, SEIZURES, CHOLECYSTECTOMY, HYSTERECTOMY, AND THYROIDECTOMY. ON EXAMINATION, SHE WAS NOTED TO HAVE RHONCHI THROUGHOUT. ON ARRIVAL, HER VITALS WERE: 98.3-104-20-99%-137/77. LABS WERE OBTAINED. WBC 27.3, RBC 4.83, HGB 13.2, HCT 40.2, D-DIMER 1.44, SODIUM 139, POTASSIUM 3.6, CHLORIDE 103, BUN 13, CREATININE 0.67, GLUCOSE 170, CALCIUM 8.6, TOTAL BILI 1.10, AST 25, ALT 24, ALK PHOS 89, CREATINE KINASE 11, TROPONIN 5.7, TOTAL PROTEIN 7.5, ALBUMIN 2.9. URINALYSIS REVEALED: WBC NONE SEEN, RBC 0-2, BACTERIA TRACE, YEAST FEW, LEUKOCYTES NEGATIVE, GLUCOSE 4+. COVID, INFLUENZA, RSV NEGATIVE. BLOOD CULTURES WERE SET UP. A CHEST XRAY WAS OBTAINED AND REVEALED: No significant interval acute cardiopulmonary changes. EKG REVEALED: NORMAL SINUS RHYTHM WITH HR 92. A CHEST CTA WAS OBTAINED AND REVEALED: 1. No pulmonary emboli 2. Bilateral bronchopneumonia 3. Probable usual postsurgical changes in the upper abdomen. IN THE ER, SHE WAS GIVEN LEVAQUIN 500MG IV X 1. SHE WAS ADMITTED TO THE HOSPITAL FOR FURTHER EVALUATION AND TREATMENT OF BRONCHOPNEUMONIA, ELEVATED D-DIMER, TYPE 2 DM II, S/P CHOLECYSTECTOMY. SHE WAS STARTED ON NORMAL SALINE AT 80 ML/HR, LEVAQUIN 750MG IV DAILY, DUONEBS QID, PULMICORT NEBS BID, ROBITUSSIN DM 10ML QID, OTBS ACHS, HUMULIN R SLIDING SCALE, PROBIOTICS, ZOFRAN 4MG IV Q6H PRN, THE POTASSIUM AND MAGENSIUM PROTOCOLS, AND HER HOME MEDICATIONS WERE RESUMED. WE WILL OBTAIN A LEFT UPPER EXTREMITY VENOUS DOPPLER TO RULE OUT PE. OTHERWISE, WE WILL FOLLOW-UP WITH AM LABS AND CHEST XRAY AND CONTINUE TO MONITOR. TIME SPENT ON CLINICAL ASSESSMENT, REVIWING LABS AND IMAGING, DECISION MAKING, AND DOCUMENTATION GREATER THAN 75 MINUTES. - Past Medical History Past Medical History: Hypertension, Diabetes, Seizures - Past Surgical History Surgical History: Cholecystectomy, Hysterectomy, Thyroidectomy - Family History Family Medical History: Diabetes Mellitus, Cancer, [place], Coronary Artery Disease, Hypertension - Social History Does patient currently use any type of tobacco product: No Have you used tobacco products in the last 12 months: No Type of Tobacco Use: None Does any household member use tobacco: No Alcohol Use: None Drug Use: None - Medications Home Medications: No Known Drug Allergies Allergy (Verified 02/02/22 15:23) - Review of Systems Constitutional: Weakness Eyes: No Symptoms Reported ENT: No Symptoms Reported Respiratory: See HPI, Cough, Shortness of Breath, SOB with Excertion Cardiovascular: No Symptoms Reported Gastrointestinal: Abdominal Pain (POST OP PAIN ) Genitourinary: No Symptoms Reported Musculoskeletal: Arm Pain (LEFT ARM PAIN ) Neurological: Weakness - Physical Exam Vital Signs: Temperature 98.3 F Pulse Rate [Left Brachial] 88 Pulse Rate 95 Respiratory Rate 18 Blood Pressure [Left Arm] 135/63 Blood Pressure 114/80 O2 Sat by Pulse Oximetry 97 Oriented: Normal Eyes: Normal Ear: Normal Nose: Normal Throat: Normal Respiratory: Diminished Throughout, Rhonchi Throughout Cardiovascular: Tachycardia : Normal Auscultation: Bowel Sounds: Normal Palpation: Normal Tenderness: Normal Skin: Normal Musculoskeletal: Left, Arm, Tender Psychiatric: Normal Mood Description: Calm Affect: Normal Speech Pattern: Clear - Assessment/Plan (1) Bronchopneumonia Status: Acute Plan: ADMIT, NORMAL SALINE AT 80 ML/HR, LEVAQUIN 750MG IV DAILY, DUONEBS QID, PULMICORT NEBS BID, ROBITUSSIN DM 10ML QID, OTBS ACHS, HUMULIN R SLIDING SCALE, PROBIOTICS, ZOFRAN 4MG IV Q6H PRN, THE POTASSIUM AND MAGENSIUM PROTOCOLS, AND HER HOME MEDICATIONS WERE RESUMED. (2) D-dimer, elevated Status: Acute (3) S/P cholecystectomy Status: Acute (4) HTN (hypertension) Qualifiers: Hypertension type: primary hypertension Qualified Code(s): I10 - Essential (primary) hypertension Status: Chronic (5) Diabetes mellitus Qualifiers: Diabetes mellitus type: type 2 Diabetes mellitus equipment operator intermodal yard insulin use: with equipment operator intermodal yard use Diabetes mellitus complication status: with hyperglycemia Qualified Code(s): E11.65 - Type 2 diabetes mellitus with hyperglycemia; Z79.4 - group home (current) use of insulin Status: Chronic - Allergies Allergies/Adverse Reactions: Allergies Allergy/AdvReac Type Severity Reaction Status Date / Time No Known Drug Allergies Allergy Verified 02/02/22 15:23
--- NOTE | 2022-02-07 11:27 | VAS ---
Ultrasound left upper extremity venous DopplerIndication: Left arm pain. Dyspnea and elevated D-dimerCOMPARISONAugust 2021 CT angiogram chestTECHNIQUEDynamic grayscale, color spectral Doppler imaging through the left upper extremity veins compression techniques and spectral analysis where applicable.FINDINGSThe left jugular vein and subclavian vein show normal color spectral Doppler flow. The left axillary vein, brachial vein throughout its length, radial vein and ulnar vein are patent and compressible with normal respiratory phasicity.IMPRESSIONNo left upper extremity deep vein thrombosisElectronically signed by: HARISH DYER (Feb 07, 2022 11:25:07)
[2022-02-07] MEDS ORDERED: COLACE CAP 100 MG PO ONE (12:26)
[2022-02-07] MEDS ORDERED: MILK OF MAGNESIA ONE (12:26)
[2022-02-07] MEDS ORDERED: COLACE CAP 100 MG PO SCH (13:00)
[2022-02-07] MEDS ORDERED: MILK OF MAGNESIA PO SCH (13:00)
[2022-02-08] MEDS: TYLENOL 325 MG TAB PO PRN ×4 (03:15→21:45)
[2022-02-08 05:52] LABS: BASOPHILS # (AUTO) 0.1 X10^3/uL (0.0-0.1); BASOPHILS % (AUTO) 0.7 % (0.2-1.0); EOSINOPHILS # (AUTO) 0.2 x10^3/uL (0.0-0.2); EOSINOPHILS % (AUTO) 1.3 % (0.9-2.9); HEMATOCRIT 33.5 % (36.0-47.0); HEMOGLOBIN 11.2 g/dL (12.0-16.0); LYMPHOCYTES # (AUTO) 2.2 X10^3/uL (1.3-2.9); LYMPHOCYTES % (AUTO) 16.1 % (21.0-51.0); MEAN CORPUSCULAR HEMOGLOBIN 27.7 pg (27.0-34.0); MEAN CORPUSCULAR HGB CONC 33.4 g/dL (33.0-35.0); MEAN CORPUSCULAR VOLUME 82.9 fL (80.0-100.0); MEAN PLATELET VOLUME 9.5 fL (7.4-11.0); MONOCYTES # (AUTO) 0.7 x10^3/uL (0.3-0.8); MONOCYTES % (AUTO) 5.4 % (0.0-13.0); NEUTROPHILS # (AUTO) 10.2 x10^3/uL (2.2-4.8); NEUTROPHILS % (AUTO) 76.5 % (42.0-75.0); RED BLOOD COUNT 4.04 X10^6/uL (3.5-5.4); RED CELL DISTRIBUTION WIDTH 14.5 % (11.6-16.5); WHITE BLOOD COUNT 13.4 X10^3/uL (3.6-10.0)
[2022-02-08 06:07] LABS: ALANINE AMINOTRANSFERASE 14 Units/L (12-78); ALBUMIN 2.1 g/dL (3.4-5.0); ALKALINE PHOSPHATASE 94 Units/L (46-116); ASPARTATE AMINO TRANSFERASE 14 Units/L (15-37); BLOOD UREA NITROGEN 12 mg/dL (7-18); CARBON DIOXIDE 26.3 mmol/L (21-32); CHLORIDE 104 mmol/L (98-107); COR CA(FOR HYPOALB) 9.5 mg/dL (8.5-10.1); COR NA(FOR HYPERGLY) 138 mmol/L (136-145); CREATININE 0.64 mg/dL (0.55-1.02); MAGNESIUM 1.8 mg/dL (1.7-2.9); SODIUM 138 mmol/L (136-145); TOTAL PROTEIN 6.4 g/dL (6.4-8.2); eGFR NON BLACK RACES > 60 (>60)
[2022-02-08] MEDS: SUBOXONE TAB SL SCH ×2 (06:20→11:52)
[2022-02-08] MEDS: REGLAN TAB 10 MG PO SCH ×4 (06:20→20:10)
--- NOTE | 2022-02-08 06:22 | RAD ---
HISTORYSOB HTN, DM, GB, HYST, THYROID.brSTUDYCHEST, 1 [id number]/01/2022FINDINGSThe trachea is midline. The cardiac silhouette is unremarkable. Bilateral perihilar subsegmental atelectasis unchanged. No pleural effusion or pneumothorax. The bony thorax is unremarkable.IMPRESSIONStable portable chest.Electronically signed by: Willam Benoit (Feb 08, 2022 06:20:44)
[2022-02-08 06:47] LABS: PLATELET MORPHOLOGY COMMENT NORMAL (NORMAL)
[2022-02-08] MEDS: ROBITUSSIN DM PO SCH ×4 (08:06→20:11)
[2022-02-08] MEDS: LEVAQUIN PREMIX IV 750 MG 750 MG/150 ML BAG IV SCH (08:06)
[2022-02-08] MEDS: NS 1,000 ML IV 1,000 ML IV SCH ×2 (08:06→23:46)
[2022-02-08] MEDS: DAPAGLIFLOZIN METFORMIN PO SCH (08:07)
[2022-02-08] MEDS: [UNRECOGNIZED DRUG - OTHER] PO SCH (08:07)
[2022-02-08] MEDS: VSL#3 PO SCH (08:07)
[2022-02-08] MEDS: COLACE CAP 100 MG PO SCH ×2 (08:08→20:11)
[2022-02-08] MEDS: MILK OF MAGNESIA PO SCH ×2 (08:08→20:11)
[2022-02-08] MEDS: PULMICORT NEB TX 0.5 MG NEB SCH ×2 (08:15→20:46)
[2022-02-08] MEDS: DUONEB 0.5 MG/3 MG (3 mL) NEB SCH ×4 (08:15→20:46)
[2022-02-08] MEDS: K-DUR TAB 20 MEQ PO PRN (09:10)
[2022-02-09] MEDS: NS 1,000 ML IV 1,000 ML IV SCH ×2 (01:27→10:00)
[2022-02-09] MEDS: TYLENOL 325 MG TAB PO PRN ×2 (03:41→08:35)
[2022-02-09] MEDS: REGLAN TAB 10 MG PO SCH (06:07)
[2022-02-09] MEDS: SUBOXONE TAB SL SCH (06:07)
[2022-02-09 06:43] LABS: ALANINE AMINOTRANSFERASE 12 Units/L (12-78); ALBUMIN 2.1 g/dL (3.4-5.0); ALKALINE PHOSPHATASE 104 Units/L (46-116); ASPARTATE AMINO TRANSFERASE 13 Units/L (15-37); BLOOD UREA NITROGEN 9 mg/dL (7-18); CALCIUM 7.8 mg/dL (8.5-10.1); CARBON DIOXIDE 25.9 mmol/L (21-32); CHLORIDE 104 mmol/L (98-107); COR CA(FOR HYPOALB) 9.3 mg/dL (8.5-10.1); COR NA(FOR HYPERGLY) 137 mmol/L (136-145); CREATININE 0.55 mg/dL (0.55-1.02); MAGNESIUM 1.8 mg/dL (1.7-2.9); SODIUM 137 mmol/L (136-145); TOTAL PROTEIN 6.4 g/dL (6.4-8.2); eGFR NON BLACK RACES > 60 (>60)
[2022-02-09 07:18] LABS: BASOPHILS # (AUTO) 0.1 X10^3/uL (0.0-0.1); BASOPHILS % (AUTO) 0.8 % (0.2-1.0); EOSINOPHILS # (AUTO) 0.5 x10^3/uL (0.0-0.2); EOSINOPHILS % (AUTO) 4.5 % (0.9-2.9); HEMATOCRIT 32.9 % (36.0-47.0); HEMOGLOBIN 10.8 g/dL (12.0-16.0); LYMPHOCYTES % (AUTO) 16.3 % (21.0-51.0); MEAN CORPUSCULAR HEMOGLOBIN 27.3 pg (27.0-34.0); MEAN CORPUSCULAR VOLUME 82.9 fL (80.0-100.0); MEAN PLATELET VOLUME 9.3 fL (7.4-11.0); MONOCYTES # (AUTO) 0.5 x10^3/uL (0.3-0.8); NEUTROPHILS % (AUTO) 74.4 % (42.0-75.0); RED BLOOD COUNT 3.97 X10^6/uL (3.5-5.4); RED CELL DISTRIBUTION WIDTH 14.8 % (11.6-16.5); WHITE BLOOD COUNT 12.1 X10^3/uL (3.6-10.0)
--- NOTE | 2022-02-09 07:27 | RAD ---
HISTORYbrochpneumonia, elevated dimer type 2 DMSTUDYCHEST, 1 VIEWCOMPARISONNone availableFINDINGSThe trachea is midline. Heart size is unchanged. No change in bilateral interstitial and perihilar opacities. No pleural effusion or pneumothorax. No acute osseous abnormalityIMPRESSIONNo change in bilateral interstitial perihilar opacities, correlate clinically.Electronically signed by: MITCH ONOFRE (Feb 09, 2022 07:26:02)
[2022-02-09 07:40] LABS: PLATELET MORPHOLOGY COMMENT NORMAL (NORMAL)
[2022-02-09 08:03] VITALS: BP 154/81
[2022-02-09] MEDS: MILK OF MAGNESIA PO SCH (08:34)
[2022-02-09] MEDS: ROBITUSSIN DM PO SCH (08:34)
[2022-02-09] MEDS: K-DUR TAB 20 MEQ PO PRN (08:35)
[2022-02-09] MEDS: COLACE CAP 100 MG PO SCH (08:37)
[2022-02-09] MEDS: DUONEB 0.5 MG/3 MG (3 mL) NEB SCH (08:38)
[2022-02-09] MEDS: LEVAQUIN PREMIX IV 750 MG 750 MG/150 ML BAG IV SCH (08:38)
[2022-02-09] MEDS: PULMICORT NEB TX 0.5 MG NEB SCH (08:38)
[2022-02-09] MEDS: VSL#3 PO SCH (09:41)
--- NOTE | 2022-02-09 10:57 | W.DIS.FURT ---
Summary of Discharge Discharge Summary of Date Date of Exam: 02/09/22 Admission Date Date of Admission: 02/06/22 Admission Diagnosis Patient Problems (Updated 02/14/22 @ 14:55 by Chikis Mccormick) Bronchopneumonia (Acute) J18.0 D-dimer, elevated (Acute) R79.89 Neutrophilic leukocytosis (Acute) D72.9 HTN (hypertension) (Chronic) I10 Diabetes mellitus (Chronic) E11.9 S/P cholecystectomy (Acute) Z90.49 Leukocytosis (Acute) D72.829 Hx of seizure disorder (Chronic) Z86.69 Hospital Course: Ms Nunes is a 51y/o patient who recently had cholecystectomy presented with worsening shortness of breath and cough. She has a hx of diabetes, HTN and seizures. She has bee having productive cough. In the ER, patient was noted to have elevated d-dimer, CTA showed no PE, bilateral bronchopneumonia. She was started on IV antibiotics and nebs. Patient's labs were monitored daily and electrolytes were replaced as needed. She was not requiring any O2. Patient's dyspnea and cough improved. She was ambulating in the room. Patient felt a lot better and was stable to go home on PO antibiotics. Advised patient to use nebs q4hrs prn. She will follow up with PCP in one week. Vital Signs: Vital Signs (72 hours) 02/06/22 13:40 02/06/22 13:51 02/06/22 14:00 Temperature 98.3 F Pulse Rate 104 H 92 H 91 H Pulse Rate [Left Brachial] Respiratory Rate 20 21 18 Blood Pressure 137/77 Blood Pressure [Left Arm] O2 Sat by Pulse Oximetry 99 99 97 Oxygen Delivery Method Room Air 02/06/22 14:15 02/06/22 14:30 02/06/22 14:45 Temperature Pulse Rate 92 H 95 H 97 H Pulse Rate [Left Brachial] Respiratory Rate 21 21 10 L Blood Pressure Blood Pressure [Left Arm] O2 Sat by Pulse Oximetry 97 97 97 Oxygen Delivery Method 02/06/22 15:03 02/06/22 15:03 02/06/22 15:15 Temperature Pulse Rate 92 H 91 H Pulse Rate [Left Brachial] Respiratory Rate 22 26 H Blood Pressure 131/69 Blood Pressure [Left Arm] O2 Sat by Pulse Oximetry 98 97 Oxygen Delivery Method 02/06/22 15:30 02/06/22 15:30 02/06/22 15:45 Temperature Pulse Rate 94 H 96 H Pulse Rate [Left Brachial] Respiratory Rate Blood Pressure 128/68 Blood Pressure [Left Arm] O2 Sat by Pulse Oximetry 97 Oxygen Delivery Method 02/06/22 16:00 02/06/22 16:00 02/06/22 16:15 Temperature Pulse Rate 97 H 97 H Pulse Rate [Left Brachial] Respiratory Rate 10 L Blood Pressure 130/60 Blood Pressure [Left Arm] O2 Sat by Pulse Oximetry 97 97 Oxygen Delivery Method 02/06/22 16:30 02/06/22 16:30 02/06/22 16:30 Temperature Pulse Rate 96 H Pulse Rate [Left Brachial] Respiratory Rate 10 L Blood Pressure 130/62 130/62 Blood Pressure [Left Arm] O2 Sat by Pulse Oximetry 96 Oxygen Delivery Method 02/06/22 16:45 02/06/22 17:00 02/06/22 17:00 Temperature Pulse Rate 96 H 97 H Pulse Rate [Left Brachial] Respiratory Rate 19 12 Blood Pressure 126/73 Blood Pressure [Left Arm] O2 Sat by Pulse Oximetry 97 97 Oxygen Delivery Method 02/06/22 17:15 02/06/22 17:30 02/06/22 17:30 Temperature Pulse Rate 93 H 95 H Pulse Rate [Left Brachial] Respiratory Rate 23 23 Blood Pressure 114/80 Blood Pressure [Left Arm] O2 Sat by Pulse Oximetry 98 95 Oxygen Delivery Method 02/06/22 17:47 02/06/22 18:09 02/06/22 17:45 Temperature Pulse Rate 95 H 94 H Pulse Rate [Left Brachial] Respiratory Rate 23 Blood Pressure 114/80 Blood Pressure [Left Arm] O2 Sat by Pulse Oximetry 95 94 L Oxygen Delivery Method Room Air Room Air 02/06/22 17:45 02/06/22 19:58 02/06/22 19:00 Temperature 98.8 F Pulse Rate Pulse Rate [Left Brachial] 18 L Respiratory Rate 18 18 Blood Pressure Blood Pressure [Left Arm] 130/81 O2 Sat by Pulse Oximetry 94 L Oxygen Delivery Method Room Air Room Air 02/06/22 20:00 02/06/22 20:45 02/06/22 20:45 Temperature 97.9 F Pulse Rate 95 H Pulse Rate [Left Brachial] 99 H Respiratory Rate 18 Blood Pressure Blood Pressure [Left Arm] 139/67 O2 Sat by Pulse Oximetry 97 94 L Oxygen Delivery Method Room Air Room Air 02/06/22 20:58 02/06/22 23:39 02/07/22 02:00 Temperature 98.4 F Pulse Rate Pulse Rate [Left Brachial] 99 H Respiratory Rate 18 20 18 Blood Pressure Blood Pressure [Left Arm] 132/72 O2 Sat by Pulse Oximetry 96 Oxygen Delivery Method Room Air 02/07/22 03:00 02/07/22 03:53 02/07/22 08:00 Temperature 98.4 F 98.3 F Pulse Rate Pulse Rate [Left Brachial] 102 H 88 Respiratory Rate 18 18 18 Blood Pressure Blood Pressure [Left Arm] 132/79 135/63 O2 Sat by Pulse Oximetry 98 97 Oxygen Delivery Method Room Air Room Air 02/07/22 07:00 02/07/22 08:37 02/07/22 08:37 Temperature Pulse Rate 92 H Pulse Rate [Left Brachial] Respiratory Rate Blood Pressure Blood Pressure [Left Arm] O2 Sat by Pulse Oximetry 93 L Oxygen Delivery Method Room Air Room Air 02/07/22 11:59 02/07/22 08:00 02/07/22 09:00 Temperature 98.5 F Pulse Rate Pulse Rate [Left Brachial] 86 Respiratory Rate 18 18 18 Blood Pressure Blood Pressure [Left Arm] 138/78 O2 Sat by Pulse Oximetry 97 Oxygen Delivery Method Room Air 02/07/22 15:25 02/07/22 16:00 02/07/22 16:25 Temperature 97.8 F Pulse Rate Pulse Rate [Left Brachial] 85 Respiratory Rate 18 20 18 Blood Pressure Blood Pressure [Left Arm] 119/66 O2 Sat by Pulse Oximetry 96 Oxygen Delivery Method Room Air 02/07/22 20:30 02/07/22 20:30 02/07/22 20:49 Temperature Pulse Rate 86 Pulse Rate [Left Brachial] Respiratory Rate 18 Blood Pressure Blood Pressure [Left Arm] O2 Sat by Pulse Oximetry 99 Oxygen Delivery Method Room Air 02/07/22 19:00 02/07/22 20:00 02/07/22 21:49 Temperature 99.0 F Pulse Rate Pulse Rate [Left Brachial] 89 Respiratory Rate 20 18 Blood Pressure Blood Pressure [Left Arm] 117/67 O2 Sat by Pulse Oximetry 93 L Oxygen Delivery Method Room Air Room Air 02/08/22 00:00 02/08/22 03:15 02/08/22 03:52 Temperature 99.2 F 98.6 F Pulse Rate Pulse Rate [Left Brachial] 92 H 85 Respiratory Rate 20 18 20 Blood Pressure Blood Pressure [Left Arm] 146/76 160/84 O2 Sat by Pulse Oximetry 95 95 Oxygen Delivery Method Room Air Room Air 02/08/22 04:15 02/08/22 07:00 02/08/22 07:46 Temperature 98.1 F Pulse Rate Pulse Rate [Left Brachial] 85 Respiratory Rate 20 18 Blood Pressure Blood Pressure [Left Arm] 118/63 O2 Sat by Pulse Oximetry 94 L Oxygen Delivery Method Room Air Room Air 02/08/22 08:15 02/08/22 08:15 02/08/22 09:10 Temperature Pulse Rate Pulse Rate [Left Brachial] Respiratory Rate 18 Blood Pressure Blood Pressure [Left Arm] O2 Sat by Pulse Oximetry 93 L Oxygen Delivery Method Room Air 02/08/22 10:10 02/08/22 12:00 02/08/22 15:17 Temperature 98.3 F Pulse Rate Pulse Rate [Left Brachial] 82 Respiratory Rate 18 18 18 Blood Pressure Blood Pressure [Left Arm] 148/80 O2 Sat by Pulse Oximetry 98 Oxygen Delivery Method Room Air 02/08/22 16:00 02/08/22 16:17 02/08/22 19:00 Temperature 98.4 F Pulse Rate Pulse Rate [Left Brachial] 88 Respiratory Rate 20 18 Blood Pressure Blood Pressure [Left Arm] 121/73 O2 Sat by Pulse Oximetry 96 Oxygen Delivery Method Room Air Room Air 02/08/22 20:00 02/08/22 20:46 02/08/22 20:48 Temperature 99.4 F Pulse Rate 78 Pulse Rate [Left Brachial] 85 Respiratory Rate 20 Blood Pressure Blood Pressure [Left Arm] 134/70 O2 Sat by Pulse Oximetry 95 97 Oxygen Delivery Method Room Air Room Air 02/08/22 21:45 02/08/22 22:45 02/08/22 23:57 Temperature 99.3 F Pulse Rate Pulse Rate [Left Brachial] 85 Respiratory Rate 18 18 20 Blood Pressure Blood Pressure [Left Arm] 129/62 O2 Sat by Pulse Oximetry 95 Oxygen Delivery Method Room Air 02/09/22 03:41 02/09/22 03:59 02/09/22 04:41 Temperature 98.2 F Pulse Rate Pulse Rate [Left Brachial] 87 Respiratory Rate 18 20 18 Blood Pressure Blood Pressure [Left Arm] 160/90 O2 Sat by Pulse Oximetry 96 Oxygen Delivery Method Room Air 02/09/22 08:00 02/09/22 08:35 02/09/22 08:38 Temperature 98.4 F Pulse Rate Pulse Rate [Left Brachial] 85 Respiratory Rate 20 20 Blood Pressure Blood Pressure [Left Arm] 154/81 O2 Sat by Pulse Oximetry 96 Oxygen Delivery Method Room Air Room Air 02/09/22 08:38 02/09/22 09:35 Temperature Pulse Rate 114 H Pulse Rate [Left Brachial] Respiratory Rate 20 Blood Pressure Blood Pressure [Left Arm] O2 Sat by Pulse Oximetry 96 Oxygen Delivery Method Labs: Laboratory Last Values WBC 12.1 X10^3/uL (3.6-10.0) H 02/09/22 06:08 RBC 3.97 X10^6/uL (3.5-5.4) 02/09/22 06:08 Hgb 10.8 g/dL (12.0-16.0) L 02/09/22 06:08 Hct 32.9 % (36.0-47.0) L 02/09/22 06:08 MCV 82.9 fL (80.0-100.0) 02/09/22 06:08 MCH 27.3 pg (27.0-34.0) 02/09/22 06:08 MCHC 33.0 g/dL (33.0-35.0) 02/09/22 06:08 RDW 14.8 % (11.6-16.5) 02/09/22 06:08 Plt Count 246 X10^3/uL (150.0-450.0) 02/09/22 06:08 Plt Count Comment Adequate (ADEQUATE) 02/09/22 06:08 MPV 9.3 fL (7.4-11.0) 02/09/22 06:08 Neut % (Auto) 74.4 % (42.0-75.0) 02/09/22 06:08 Lymph % (Auto) 16.3 % (21.0-51.0) L 02/09/22 06:08 [place] % (Auto) 4.0 % (0.0-13.0) 02/09/22 06:08 Eos % (Auto) 4.5 % (0.9-2.9) H 02/09/22 06:08 Baso % (Auto) 0.8 % (0.2-1.0) 02/09/22 06:08 Neut # (Auto) 9.0 x10^3/uL (2.2-4.8) H 02/09/22 06:08 Lymph # (Auto) 2.0 X10^3/uL (1.3-2.9) 02/09/22 06:08 [place] # (Auto) 0.5 x10^3/uL (0.3-0.8) 02/09/22 06:08 Eos # (Auto) 0.5 x10^3/uL (0.0-0.2) H 02/09/22 06:08 Baso # (Auto) 0.1 X10^3/uL (0.0-0.1) 02/09/22 06:08 Absolute Nucleated RBC 0.0 /100WBC 02/09/22 06:08 Total Counted 100 02/09/22 06:08 Neutrophils % (Manual) 77 % (39-76) H 02/09/22 06:08 Band Neutrophils % 3 % (0-10) 02/07/22 02:01 Lymphocytes % (Manual) 18 % (13-43) 02/09/22 06:08 Monocytes % (Manual) 3 % (4-9) L 02/09/22 06:08 Eosinophils % (Manual) 2 % (0-6) 02/09/22 06:08 Plt Morphology Comment Normal (NORMAL) 02/09/22 06:08 RBC Morphology Normal (NORMAL) 02/09/22 06:08 D-Dimer 1.44 ug/ml (0.0-0.57) H 02/06/22 14:03 Sodium 137 mmol/L (136-145) 02/09/22 06:08 Corrected Sodium 137 mmol/L (136-145) 02/09/22 06:08 Potassium 3.5 mmol/L (3.5-5.1) 02/09/22 06:08 Chloride 104 mmol/L (98-107) 02/09/22 06:08 Carbon Dioxide 25.9 mmol/L (21-32) 02/09/22 06:08 BUN 9 mg/dL (7-18) 02/09/22 06:08 Creatinine 0.55 mg/dL (0.55-1.02) 02/09/22 06:08 Est GFR (MDRD) Af Amer > 60 (>60) 02/09/22 06:08 Est GFR (MDRD) Non-Af > 60 (>60) 02/09/22 06:08 Glucose 116 mg/dL (65-99) H 02/09/22 06:08 POC Glucose (mg/dL) 121 mg/dL (65-99) H 02/09/22 05:45 Lactic Acid 0.9 mmol/L (0.4-2.0) 02/06/22 15:20 Calcium 7.8 mg/dL (8.5-10.1) L 02/09/22 06:08 Corrected Calcium 9.3 mg/dL (8.5-10.1) 02/09/22 06:08 Magnesium 1.8 mg/dL (1.7-2.9) 02/09/22 06:08 Total Bilirubin 0.70 mg/dL (0.2-1.0) 02/09/22 06:08 AST 13 Units/L (15-37) L 02/09/22 06:08 ALT 12 Units/L (12-78) 02/09/22 06:08 Alkaline Phosphatase 104 Units/L (46-116) 02/09/22 06:08 Creatine Kinase 12 Units/L (26-192) L 02/07/22 02:01 Troponin I High Sens 4.7 ng/L (4.0-60.0) 02/07/22 02:01 Total Protein 6.4 g/dL (6.4-8.2) 02/09/22 06:08 Albumin 2.1 g/dL (3.4-5.0) L 02/09/22 06:08 Globulin 4.3 g/dL (2.5-4.5) 02/09/22 06:08 Albumin/Globulin Ratio 0.5 Ratio (1.1-2.1) L 02/09/22 06:08 Specimen Type Clean catch urine 02/06/22 15:04 Urine Color Yellow (YELLOW) 02/06/22 15:04 Urine Appearance Slightly hazy (CLEAR) 02/06/22 15:04 Urine pH 6.5 (5.0 - 8.0) 02/06/22 15:04 Ur Specific [place] 1.015 (1.000-1.030) 02/06/22 15:04 Urine Protein Negative (NEGATIVE) 02/06/22 15:04 Urine Glucose (UA) 4+ (NEGATIVE) 02/06/22 15:04 Urine Ketones Negative (NEGATIVE) 02/06/22 15:04 Urine Blood Negative (NEGATIVE) 02/06/22 15:04 Urine Nitrite Negative (NEGATIVE) 02/06/22 15:04 Urine Bilirubin Negative (NEGATIVE) 02/06/22 15:04 Urine Urobilinogen 2+ (NORMAL) 02/06/22 15:04 Ur Leukocyte Esterase Negative (NEGATIVE) 02/06/22 15:04 Urine RBC 0-2 /HPF (0-3) 02/06/22 15:04 Urine WBC None seen /HPF (0-5) 02/06/22 15:04 Ur Squamous Epith Cells Moderate /HPF (NEGATIVE) 02/06/22 15:04 Urine Bacteria Trace /HPF (NEGATIVE) 02/06/22 15:04 Urine Yeast Few /HPF (NEGATIVE) 02/06/22 15:04 Ur Culture Indicated? No/not indicated 02/06/22 15:04 SARS-CoV-2 (PCR) Negative (NEGATIVE) 02/06/22 15:17 Influenza Type A (PCR) Negative (NEGATIVE) 02/06/22 15:17 Influenza Type B (PCR) Negative (NEGATIVE) 02/06/22 15:17 RSV (PCR) Negative (NEGATIVE) 02/06/22 15:17 Reason For Visit: BROCHPNEUMONIA, ELEVATED DIMER, TYPE 2 DM Discharge Diagnosis All Active Problems (Updated 02/14/22 @ 14:55 by Chikis Mccormick) Bronchopneumonia (Acute) D-dimer, elevated (Acute) Neutrophilic leukocytosis (Acute) HTN (hypertension) (Chronic) Diabetes mellitus (Chronic) Left upper lobe pneumonia (Acute) S/P cholecystectomy (Acute) Right upper lobe pneumonia (Acute) Leukocytosis (Acute) Hx of seizure disorder (Chronic) Plan of Treatment: Continue with present treatment and follow up plan. Pt is to keep follow up appointment as instructed and take medications as ordered. Discharge Medications Discharge Medications: No Known Drug Allergies Allergy (Verified 02/02/22 15:23) New Prescriptions benzonatate 100 mg capsule 100 mg PO BID PRN cough #14 caps 02/09/22 [Rx] ipratropium 0.5 mg-albuterol 3 mg (2.5 mg base)/3 mL nebulization soln 3 ml inhalation QID PRN shortness of breath or wheezing #90 mL 02/09/22 [Rx] levofloxacin 750 mg tablet 750 mg PO DAILY #5 tabs 02/09/22 [Rx] Discharge Disposition Discharge Disposition: Home Discharge Condition: Stable Discharge Plan Discharge Plan Hospital Course: Ms Nunes is a 51y/o patient who recently had cholecystectomy presented with worsening shortness of breath and cough. She has a hx of diabetes, HTN and seizures. She has bee having productive cough. In the ER, patient was noted to have elevated d-dimer, CTA showed no PE, bilateral bronchopneumonia. She was started on IV antibiotics and nebs. Patient's labs were monitored daily and electrolytes were replaced as needed. She was not requiring any O2. Patient's dyspnea and cough improved. She was ambulating in the room. Patient felt a lot better and was stable to go home on PO antibiotics. Advised patient to use nebs q4hrs prn. She will follow up with PCP in one week. Patient Disposition: 01 HOME, SELF-CARE Condition: Stable Health Concerns: Post Hospitalization: new medications and changes needed to prevent readmission or further decline. Pt educated and given instructions on all concerns. Plan of Treatment: Continue with present treatment and follow up plan. Pt is to keep follow up appointment as instructed and take medications as ordered. Prescriptions: New levofloxacin 750 mg tablet 750 mg PO DAILY Qty: 5 0RF ipratropium-albuterol 0.5 mg-3 mg(2.5 mg base)/3 mL solution for nebulization 3 ml inhalation QID PRN (Reason: shortness of breath or wheezing) Qty: 90 1RF benzonatate 100 mg capsule 100 mg PO BID PRN (Reason: cough) Qty: 14 0RF Continued phentermine 37.5 mg Tablet 37.5 mg PO DAILY metoclopramide HCl 10 mg Tablet 10 mg PO QACHS buprenorphine-naloxone 8-2 mg Tablet, Sublingual 1 tab SUBLINGUAL QDAY loratadine 10 mg Tablet 10 mg PO QDAY insulin aspart U-100 [Novolog Flexpen U-100 Insulin] 100 unit/mL (3 mL) Insulin Pen 5 unit SUBCUT TID Rx Instructions: also does a sliding scale that was given to her per for between meals. Tresiba FlexTouch U-100 100 unit/mL (3 mL) Insulin Pen 35 unit SUBCUT QHS Xigduo XR 10-1,000 mg Tablet, Ir - Er, Biphasic 24hr 1 tab PO QDAY Linzess 72 mcg Capsule 72 mcg PO QAM Discontinued cefuroxime axetil 500 mg tablet 500 mg PO Q12H Qty: 20 0RF Follow ups/Referrals Follow ups/Referrals: LYNN NUNES [Primary Care Provider] - 3 days Instructions Instructions: Community-Acquired Pneumonia, Adult, [id number] Stand Alone Forms: Excuse From Work or School, Precautions for COVID19, [facility], Patient Portal, Social Distancing
== END 2022-02-09 11:07 | disposition home or self-care (01) | DRG 195 ==
LOC: ER 13:40 → MED/SURG 17:30
PROVIDERS: ADMIT Internal Medicine; ATTEND Internal Medicine
DX: I10 Essential (primary) hypertension; R79.1 Abnormal coagulation profile; R06.02 Shortness of breath; J18.0 Bronchopneumonia, unspecified organism; Z98.890 Other specified postprocedural states; E11.65 Type 2 diabetes mellitus with hyperglycemia; M79.602 Pain in left arm; Z79.4 Long term (current) use of insulin